=== PATIENT | male | born 1960 | race Caucasian/White ===

== ENCOUNTER → 2017-12-13 | Outpatient (CLI) | payer BC ==
--- NOTE | 2017-12-14 08:07 | US ---
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 Consider MRI correlation.
== END | disposition home or self-care (01) ==
LOC: RADUSWWP 15:45
PROVIDERS: ATTEND Family Medicine
DX: M71.22 Synovial cyst of popliteal space [Baker], left knee (principal); M23.92 Unspecified internal derangement of left knee

== ENCOUNTER → 2019-03-24 | Outpatient (CLI) | payer BC ==
--- NOTE | 2019-03-24 10:48 | MR ---
EXAMINATION TYPE: MR lumbar spine wo con DATE OF EXAM: 03/24/2019 COMPARISON: None HISTORY: lumbar disc prolapse TECHNIQUE: Multiplanar, multisequence images of the lumbar spine were acquired. T12-L1: Small posterior broad-based disc bulge causes mild anterior mass effect on the thecal sac. Mi nimal retrolisthesis grade 1 T12-L1. Mild facet arthropathy. L1-L2: Normal disc appearance without desiccation. No herniation, protrusion or disc bulging. No ca nal stenosis is present. Foramina are patent bilaterally. There is mild facet arthropathy. L2-L3: Posterior broad-based disc bulge causes mild anterior mass effect on the thecal sac. There is some mild facet arthropathy change. No significant central stenosis. Circumferential extension of end plate disc complex results in some foraminal encroachment greater on the left. L3-L4: Posterior broad-based disc bulge causes mild anterior mass effect on the thecal sac. No signif icant central canal stenosis. Circumferential extension of endplate disc complex encroaches somewhat on the foramina. There is some facet arthropathy change. L4-L5: Listhesis is noted, there is facet arthropathy with hypertrophy ligamentum flavum, resulting s tenosis is severe, there is a trefoil appearance of the thecal sac and there is bilateral foraminal e ncroachment. There is a mild posterior broad-based disc bulge. L5-S1: Broad-based posterior disc bulge causes mild anterior mass effect on the thecal sac. There is facet arthropathy present. Circumferential extension of endplate disc complex results in bilateral fe moral encroachment. Lumbar segments are intact. No paraspinal masses are identified. Conus medullaris has a normal appe arance. Lumbar vertebral bodies show preserved height. There is multilevel spondylosis with endplate discogenic marrow signal change. Retrolisthesis grade 1 L5-S1, anterolisthesis grade 1 at L4-5 is not ed. Loss of disc height and signal is present at the intervertebral levels compatible with disc desic cation and degenerative disc disease. There is mild spinal curvature. Probable cortical cyst present in the exophytic location in the upper pole left kidney measuring approximately 1 cm IMPRESSION: Degenerative disc disease with spinal stenosis greatest at L4-5. Multilevel facet arthropathy. Spinal curvature and foraminal encroachment.
== END | disposition home or self-care (01) ==
LOC: RADMRIMAIN 08:41
PROVIDERS: ATTEND Family Medicine
DX: M48.061 Spinal stenosis, lumbar region without neurogenic claudication (principal); M51.36 Other intervertebral disc degeneration, lumbar region; M46.96 Unspecified inflammatory spondylopathy, lumbar region; M43.8X6 Other specified deforming dorsopathies, lumbar region
CPT/HCPCS: 72148

== ENCOUNTER → 2020-09-06 | Outpatient (CLI) | payer BC ==
[~2020-09-06] MED LIST: REGADENOSON 0.4 MG/5 ML SYRINGE IV ONE
--- NOTE | 2020-09-06 10:40 | NM ---
EXAMINATION TYPE: NM stress lexiscan cardiolite DATE OF EXAM: 09/06/2020 COMPARISON: NONE HISTORY: Chest pain TECHNIQUE: After the intravenous administration of 9.59 mCi Tc 99m Sestamibi - Cardiolite resting SP ECT images acquired 45 minutes post injection. The patient received 0.4mg Lexiscan, 25.6 mCi Tc 99m Sestamibi - Stress images obtained [address] injection FINDINGS: Review of stress and rest SPECT images demonstrates no distinct perfusion abnormality. Gated analysi s shows normal wall motion with an estimated left ventricular ejection fraction of 54 %. IMPRESSION: No scintigraphic evidence for reversible ischemia.
--- NOTE | 2020-09-06 11:49 | EST ---
EXERCISE STRESS AGE: 60 SEX: M HT: 68" WT: 149 PROTOCOL: Lexiscan Cardiolite Stress Test HEART RATE REST: 66 BLOOD PRESSURE REST: 155/79 MAXIMUM HEART RATE ACHIEVED: 94 MAXIMUM BLOOD PRESSURE: 159/74 85% MPHR: 134 100% MPHR: 158 CLINICAL INFORMATION: Baseline rhythm is sinus mechanism, rate of 66, normal axis and intervals, minor nonspecific ST-T wave changes, baseline blood pressure 155/79 mmHg. Patient received injection of Lexiscan. Electrocardiograph monitoring revealed rare PVCs. Cardiolite was injected per protocol. CONCLUSION: 1. Nondiagnostic electrocardiograph stress testing. 2. Nuclear images will be reported separately. MMODL / IJN: [id number] /
== END | disposition home or self-care (01) ==
LOC: RADNMMAIN 07:50
PROVIDERS: ATTEND Family Medicine
DX: R07.89 Other chest pain (principal)
CPT/HCPCS: 93017; 78452; A9500; J2785

== ENCOUNTER 2021-11-03 13:15 | Inpatient (IN) | payer BC ==
[2021-11-03] MEDS ORDERED: SODIUM CHLORIDE 0.9% 1,000 ML IV STA (13:51)
--- NOTE | 2021-11-03 14:03 | ED ---
SOB HPI - General Chief Complaint: Shortness of Breath Stated Complaint: Respiratory Distress,COVID+ Time Seen by Provider: 11/03/21 13:31 Source: patient, EMS, RN notes reviewed, old records reviewed Mode of arrival: EMS Limitations: physical limitation - History of Present Illness Initial Comments: 61-year-old male brought in by EMS from a local urgent care complains of shortness of breath fevers T nausea for the past 3-4 days as well as he has satu ration of 70% on room air which increased to 93% on 6 L patient is a poor historian this time he was noted be tachycardic he also denies any known history of COPD. Attempts to find out if he had a Covid Test done today which he states he did are pending at this time MD Complaint: shortness of breath - Related Data Home Medications Medication Instructions Recorded Confirmed Albuterol Inhaler [Ventolin Hfa 2 puff INHALATION RT-Q6H PRN 11/03/21 11/03/21 Inhaler] Ferrous Sulfate [Feosol] 325 mg PO DAILY 11/03/21 11/03/21 Gabapentin 800 mg PO QID 11/03/21 11/03/21 Metoprolol Succinate (ER) [Toprol 50 mg PO DAILY 11/03/21 11/03/21 Xl] Pravastatin Sodium [Pravachol] 40 mg PO HS 11/03/21 11/03/21 Tamsulosin HCl [Flomax] 0.4 mg PO DAILY 11/03/21 11/03/21 oxyCODONE HCL [oxyCODONE HCL (IR)] 30 mg PO Q6H 11/03/21 11/03/21 Allergies Allergy/AdvReac Type Severity Reaction Status Date / Time bupropion [From Zyban] Allergy Unknown Verified 11/03/21 14:31 Review of Systems ROS Statement: Those systems with pertinent positive or pertinent negative responses have been documented in the HPI. ROS Other: All systems not noted in ROS Statement are negative. Limitations: ROS unobtainable due to patients medical condition Past Medical History Past Medical History: Cancer, COPD Additional Past Medical History / Comment(s): Lymphoma-last chemo last month History of Any Multi-Drug Resistant Organisms: None Reported Past Surgical History: Orthopedic Surgery Additional Past Surgical History / Comment(s): Bilateral knee surgery Past Psychological History: No Psychological Hx Reported Smoking Status: Current every day smoker Past Alcohol Use History: None Reported Past Drug Use History: None Reported General Exam - General Exam Comments Initial Comments: Is a well-developed well-nourished lethargic male who is a poor historian Limitations: physical limitation General appearance: alert, lethargic Head exam: Present: atraumatic, normocephalic, normal inspection Eye exam: Present: normal appearance, PERRL, EOMI. Absent: scleral icterus, conjunctival injection, periorbital swelling ENT exam: Present: mucous membranes dry Neck exam: Present: normal inspection. Absent: tenderness, meningismus, lymphadenopathy Respiratory exam: Present: rhonchi, decreased breath sounds. Absent: respiratory distress, wheezes, rales, stridor Cardiovascular Exam: Present: normal rhythm, tachycardia, normal heart sounds. Absent: systolic murmur, diastolic murmur, rubs, gallop, clicks GI/Abdominal exam: Present: soft, normal bowel sounds. Absent: distended, tenderness, guarding, rebound, rigid Extremities exam: Present: normal inspection, full ROM, normal capillary refill. Absent: tenderness, pedal edema, joint swelling, calf tenderness Back exam: Present: normal inspection Neurological exam: Present: alert, oriented X3, CN II-XII intact Psychiatric exam: Present: normal affect, normal mood Skin exam: Present: warm, dry, intact, normal color. Absent: rash Course Vital Signs 11/03/21 11/03/21 11/03/21 13:23 14:20 15:55 Temperature 101.9 F H 99 F Pulse Rate 114 H 112 H 108 H Respiratory 24 24 20 Rate Blood Pressure 137/78 139/81 103/69 O2 Sat by Pulse 98 86 L 91 L Oximetry - Reevaluation(s) Reevaluation #1: 11/03/21 16:55 Reevaluation patient resting comfortably no changes mental status at this time. Medical Decision Making - Medical Decision Making I did discuss the findings patient will be admitted to Dr. Shannon - Lab Data Result diagrams: 11/03/21 13:28 11/03/21 13:28 Lab Results 11/03/21 11/03/21 11/03/21 Range/Units 13:28 13:28 13:28 WBC 44.0 H (3.8-10.6) k/uL RBC 4.05 L (4.30-5.90) m/uL Hgb 12.2 L (13.0-17.5) gm/dL Hct 36.8 L (39.0-53.0) % MCV 90.7 (80.0-100.0) fL MCH 30.0 (25.0-35.0) pg MCHC 33.1 (31.0-37.0) g/dL RDW 16.0 H (11.5-15.5) % Plt Count 106 L (150-450) k/uL MPV 7.7 Neutrophils % (Manual) 21 % Lymphocytes % (Manual) 75 % Monocytes % (Manual) 3 % Eosinophils % (Manual) 1 % Neutrophils # (Manual) 9.24 H (1.3-7.7) k/uL Lymphocytes # (Manual) 33.00 H (1.0-4.8) k/uL Monocytes # (Manual) 1.32 H (0-1.0) k/uL Eosinophils # (Manual) 0.44 (0-0.7) k/uL Nucleated RBCs 0 (0-0) /100 WBC Pathologist Review Polychromasia Present Anisocytosis Slight PT 9.9 (9.0-12.0) sec INR 0.9 (<1.2) APTT 22.4 (22.0-30.0) sec D-Dimer 9.46 H (<0.60) mg/L FEU Sodium 133 L (137-145) mmol/L Potassium 4.4 (3.5-5.1) mmol/L Chloride 98 (98-107) mmol/L Carbon Dioxide 27 (22-30) mmol/L Anion Gap 8 mmol/L BUN 21 H (9-20) mg/dL Creatinine 0.99 (0.66-1.25) mg/dL Est GFR (CKD-EPI)AfAm >90 (>60 ml/min/1.73 sqM) Est GFR (CKD-EPI)NonAf 81 (>60 ml/min/1.73 sqM) Glucose 93 (74-99) mg/dL Plasma Lactic Acid French (0.7-2.0) mmol/L Calcium 8.4 (8.4-10.2) mg/dL Magnesium 1.7 (1.6-2.3) mg/dL Total Bilirubin 0.4 (0.2-1.3) mg/dL AST 60 H (17-59) U/L ALT 27 (4-49) U/L Alkaline Phosphatase 135 H (38-126) U/L Lactate Dehydrogenase (313-618) U/L Troponin I (0.000-0.034) ng/mL C-Reactive Protein (<1.0) mg/dL NT-Pro-B Natriuret Pep pg/mL Total Protein 6.3 (6.3-8.2) g/dL Albumin 3.6 (3.5-5.0) g/dL Influenza Type A (PCR) (Not Detectd) Influenza Type B (PCR) (Not Detectd) RSV (PCR) (Not Detectd) SARS-CoV-2 (PCR) (Not Detectd) 11/03/21 11/03/21 11/03/21 Range/Units 13:28 13:28 13:28 WBC (3.8-10.6) k/uL RBC (4.30-5.90) m/uL Hgb (13.0-17.5) gm/dL Hct (39.0-53.0) % MCV (80.0-100.0) fL MCH (25.0-35.0) pg MCHC (31.0-37.0) g/dL RDW (11.5-15.5) % Plt Count (150-450) k/uL MPV Neutrophils % (Manual) % Lymphocytes % (Manual) % Monocytes % (Manual) % Eosinophils % (Manual) % Neutrophils # (Manual) (1.3-7.7) k/uL Lymphocytes # (Manual) (1.0-4.8) k/uL Monocytes # (Manual) (0-1.0) k/uL Eosinophils # (Manual) (0-0.7) k/uL Nucleated RBCs (0-0) /100 WBC Pathologist Review Polychromasia Anisocytosis PT (9.0-12.0) sec INR (<1.2) APTT (22.0-30.0) sec D-Dimer (<0.60) mg/L FEU Sodium (137-145) mmol/L Potassium (3.5-5.1) mmol/L Chloride (98-107) mmol/L Carbon Dioxide (22-30) mmol/L Anion Gap mmol/L BUN (9-20) mg/dL Creatinine (0.66-1.25) mg/dL Est GFR (CKD-EPI)AfAm (>60 ml/min/1.73 sqM) Est GFR (CKD-EPI)NonAf (>60 ml/min/1.73 sqM) Glucose (74-99) mg/dL Plasma Lactic Acid French 0.9 (0.7-2.0) mmol/L Calcium (8.4-10.2) mg/dL Magnesium (1.6-2.3) mg/dL Total Bilirubin (0.2-1.3) mg/dL AST (17-59) U/L ALT (4-49) U/L Alkaline Phosphatase (38-126) U/L Lactate Dehydrogenase (313-618) U/L Troponin I 0.016 (0.000-0.034) ng/mL C-Reactive Protein (<1.0) mg/dL NT-Pro-B Natriuret Pep 510 pg/mL Total Protein (6.3-8.2) g/dL Albumin (3.5-5.0) g/dL Influenza Type A (PCR) (Not Detectd) Influenza Type B (PCR) (Not Detectd) RSV (PCR) (Not Detectd) SARS-CoV-2 (PCR) (Not Detectd) 11/03/21 11/03/21 11/03/21 Range/Units 14:04 14:05 15:00 WBC (3.8-10.6) k/uL RBC (4.30-5.90) m/uL Hgb (13.0-17.5) gm/dL Hct (39.0-53.0) % MCV (80.0-100.0) fL MCH (25.0-35.0) pg MCHC (31.0-37.0) g/dL RDW (11.5-15.5) % Plt Count (150-450) k/uL MPV Neutrophils % (Manual) % Lymphocytes % (Manual) % Monocytes % (Manual) % Eosinophils % (Manual) % Neutrophils # (Manual) (1.3-7.7) k/uL Lymphocytes # (Manual) (1.0-4.8) k/uL Monocytes # (Manual) (0-1.0) k/uL Eosinophils # (Manual) (0-0.7) k/uL Nucleated RBCs (0-0) /100 WBC Pathologist Review See comment A Polychromasia Anisocytosis PT (9.0-12.0) sec INR (<1.2) APTT (22.0-30.0) sec D-Dimer (<0.60) mg/L FEU Sodium (137-145) mmol/L Potassium (3.5-5.1) mmol/L Chloride (98-107) mmol/L Carbon Dioxide (22-30) mmol/L Anion Gap mmol/L BUN (9-20) mg/dL Creatinine (0.66-1.25) mg/dL Est GFR (CKD-EPI)AfAm (>60 ml/min/1.73 sqM) Est GFR (CKD-EPI)NonAf (>60 ml/min/1.73 sqM) Glucose (74-99) mg/dL Plasma Lactic Acid French (0.7-2.0) mmol/L Calcium (8.4-10.2) mg/dL Magnesium (1.6-2.3) mg/dL Total Bilirubin (0.2-1.3) mg/dL AST (17-59) U/L ALT (4-49) U/L Alkaline Phosphatase (38-126) U/L Lactate Dehydrogenase 841 H (313-618) U/L Troponin I (0.000-0.034) ng/mL C-Reactive Protein 13.7 H (<1.0) mg/dL NT-Pro-B Natriuret Pep pg/mL Total Protein (6.3-8.2) g/dL Albumin (3.5-5.0) g/dL Influenza Type A (PCR) Not Detected (Not Detectd) Influenza Type B (PCR) Not Detected (Not Detectd) RSV (PCR) Not Detected (Not Detectd) SARS-CoV-2 (PCR) Detected A (Not Detectd) - EKG Data -: EKG Interpreted by Me EKG shows normal: sinus rhythm EKG Comments: Sinus tachycardia rate 1:15. Interval 124 QRS duration 94 QT since QTC 304/420 - Radiology Data Radiology results: report reviewed (Imaging reviewed evidence of left pleural effusion lymphadenopathy please see the complete report no definitive evidence of PE.), image reviewed Critical Care Time Critical Care Time: Yes Total Critical Care Time: 39 Critical Care Time: Critical care time including initial presentation with history physical labs x- rays discussed with paramedics upon arrival reevaluation patient on multiple occasions discussion with the pathologist as well as admitting physician a dmission orders documentation the above Disposition Clinical Impression: COVID-19, Lymphoma, Febrile illness, acute, Pleural effusion, Hypoxemia, Dehydration, Leukocytosis Disposition: ADMITTED IP TO THIS [facility] Condition: Fair Referrals: Odin Srivastava MD [Primary Care Provider] - 1-2 days
[2021-11-03] MEDS ORDERED: ACETAMINOPHEN TAB 500 MG TAB PO STA (14:06)
[2021-11-03 14:09] LABS: Anisocytosis Slight; HCT 36.8 % (39.0-53.0); HGB 12.2 gm/dL (13.0-17.5); MCHC 33.1 g/dL (31.0-37.0); MCV 90.7 fL (80.0-100.0); Mean Platelet Volume 7.7; Platelet Count 106 k/uL (150-450); RBC 4.05 m/uL (4.30-5.90)
[2021-11-03 14:26] LABS: ALT 27 U/L (4-49); AST 60 U/L (17-59); African American GFR (CKD) >90 (>60 ml/min/1.73 sqM); Albumin 3.6 g/dL (3.5-5.0); Alkaline Phosphatase 135 U/L (38-126); Anion Gap 8 mmol/L; Blood Urea Nitrogen 21 mg/dL (9-20); Calcium 8.4 mg/dL (8.4-10.2); Carbon Dioxide 27 mmol/L (22-30); Chloride 98 mmol/L (98-107); Glucose 93 mg/dL (74-99); Magnesium 1.7 mg/dL (1.6-2.3); Non-African American GFR(CKD) 81 (>60 ml/min/1.73 sqM); Potassium 4.4 mmol/L (3.5-5.1); Sodium 133 mmol/L (137-145); Total Bilirubin 0.4 mg/dL (0.2-1.3); Total Protein 6.3 g/dL (6.3-8.2)
[2021-11-03 14:27] LABS: INR 0.9 (<1.2); Partial Thromboplastin Time 22.4 sec (22.0-30.0); Prothrombin Time 9.9 sec (9.0-12.0)
--- NOTE | 2021-11-03 14:27 | XR ---
EXAMINATION TYPE: XR chest 2V DATE OF EXAM: 11/03/2021 COMPARISON: None HISTORY: 61 year-old male shortness of breath, difficulty breathing TECHNIQUE: AP and lateral views FINDINGS: Heart mildly enlarged. Diffuse interstitial density. Patchy bilateral airspace opacities. There appea rs to be a small left pleural effusion. IMPRESSION: 1. Cardiomegaly with interstitial opacities and patchy airspace disease along with small left pleural effusion. Consider CHF with interstitial pulmonary edema. 2. Underlying COVID pneumonia should be excluded clinically.
[2021-11-03 14:58] LABS: Eosinophils # (M) 0.44 k/uL (0-0.7); Monocytes # (M) 1.32 k/uL (0-1.0); Neutrophils # (M) 9.24 k/uL (1.3-7.7); Neutrophils % (M) 21 %; Nucleated Red Blood Cells 0 /100 WBC (0-0); Total Cells Counted 100
[2021-11-03 14:59] LABS: Polychromasia Present
--- NOTE | 2021-11-03 15:27 | CT ---
EXAMINATION TYPE: CT angio chest DATE OF EXAM: 11/03/2021 COMPARISON: Radiograph same day HISTORY: 61-year-old male covid, weakness TECHNIQUE: Contiguous axial scanning of the chest performed with IV Contrast, patient injected with 1 00 mL of Isovue 370. Coronal/sagittal MIP reconstructions performed. CT DLP: 510.2 mGycm Automated exposure control for dose reduction was used. FINDINGS: Heart normal size without pericardial effusion. No flattening of the interventricular septum. Small a mount of refluxed contrast into the hepatic veins. LAD coronary artery calcifications are present. Atherosclerotic arch calcifications of the aorta with conventional arch vessel branching anatomy. Generalized thoracic lymphadenopathy. Axillary lymph nodes measure up to 1.6 cm short axis. Internal mammary chain lymph nodes measure up to 2.5 cm on the left. Prevascular space lymph nodes measure 4.2 x 1.7 cm. Right paratracheal lymph nodes measure up to 2.1 cm. AP window lymph nodes measure up to 2.4 cm. Right hilar lymph nodes measure 3.0 x 1.6 cm. Left hilar lymph nodes measure up to 3.9 x 1.2 cm. Lower right paraesophageal lymph nodes measure up to 2.1 x 2.0 cm. Pericardiac mimi mass measures up to 6.6 x 2.1 cm. Retrocrural lymphadenopathy measures up to 1.9 cm. Soft tissue encases the retroperitoneal vasculature in the upper abdomen. Portacaval lymphadenopathy measuring up to 5.4 cm. Pura hepatic lymphadenopathy measuring up to at least 4.4 cm. Severe splenomegaly at least 18.4 cm. Numerous calcifications within the pancreas compatible with chronic pancreatitis. Nonspecific 1.4 cm hypodensity right liver lobe, probable cyst. There is a moderate left pleural effusion with adjacent atelectasis. Moderate emphysema. Diffuse septal lines. Some scattered bronchiolectasis. While there is satisfactory opacification the pulmonary artery system, there is excessive motion renetta fact limiting assessment for pulmonary embolus. No large central or definite lobar branch embolus. Ma ny of the segmental and more distal arterial branches are nondiagnostic and emboli in these locations cannot be excluded on the basis of this exam. Bones: Moderate degenerative disc disease throughout the thoracic spine. Accentuated mid to lower tho racic kyphosis. Breathing motion artifacts. IMPRESSION: 1. THE PATIENT IS BREATHING DURING THE SCAN. NO DEFINITE CENTRAL OR LOBAR BRANCH EMBOLUS. MANY OF THE SEGMENTAL AND MORE DISTAL ARTERIAL BRANCHES ARE NONDIAGNOSTIC AND EMBOLI IN THESE LOCATIONS CANNOT B E EXCLUDED ON THE BASIS OF THIS EXAM. 2. DIFFUSE THORACIC AND UPPER ABDOMINAL LYMPHADENOPATHY WITH MIMI MASSES MEASURING UP TO 6.6 CM IN T HE CHEST AND COMPLETELY ENCASING RETROPERITONEAL VASCULATURE IN THE UPPER ABDOMEN. ALSO, SEVERE SPLEN OMEGALY UP TO AT LEAST 18.4 CM. FURTHER WORKUP FOR LYMPHOMA OR LYMPHOPROLIFERATIVE DISORDER RECOMMEND ED. 3. COPD. GIVEN A MODERATE LEFT PLEURAL EFFUSION AND DIFFUSE SEPTAL LINES, CONSIDER SUPERIMPOSED PULMO NARY VASCULAR CONGESTION.
--- NOTE | 2021-11-03 15:29 | CT ---
EXAMINATION TYPE: CT brain wo con DATE OF EXAM: 11/03/2021 COMPARISON: None HISTORY: 61 year-old male altered mental status, confusion, weakness TECHNIQUE: Examination was done in axial plane without intravenous contrast. Coronal and sagittal r econstructions performed. CT DLP: 1130 mGycm Automated exposure control for dose reduction was used. FINDINGS: There is no evidence of acute intracranial hemorrhage, acute ischemic changes, mass, mass-effect, or extra-axial fluid collection. There is no effacement of cerebral sulci or basal subarachnoid cister ns. There is no hydrocephalus. There is no midline shift. Felder-white matter distinction is preserv ed. Leftward nasal septal deviation. Moderate mucosal thickening ethmoid air cells. Orbits and globes are intact. Mastoid air cells appear somewhat hypoplastic. IMPRESSION: No acute intracranial abnormality seen.
[2021-11-03 15:35] LABS: C Reactive Protein 13.7 mg/dL (<1.0)
[2021-11-03] MEDS ORDERED: NALOXONE 0.4 MG/ML 1 ML VIAL IV PRN (16:59)
[2021-11-03 17:37] LABS: ABG Base Excess 1.8 mmol/L; ABG HCO3 27 mmol/L (21-25); ABG Oxygen Saturation 93.7 % (94-97); ABG PCO2 46 mmHg (35-45); ABG PH 7.38 (7.35-7.45); ABG PO2 65 mmHg (83-108); ABG TCO2 28 mmol/L (19-24); Allen Test Performed? Yes
[2021-11-03] MEDS ORDERED: GABAPENTIN 400 MG CAP PO SCH (18:00)
[2021-11-03] MEDS ORDERED: ONDANSETRON 4 MG/2 ML VIAL IVP PRN (18:53)
[2021-11-03] MEDS ORDERED: MELATONIN 3 MG TABLET PO PRN (18:53)
--- NOTE | 2021-11-03 19:01 | P.HPIM ---
History of Present Illness H&P Date: 11/03/21 Chief Complaint: Confusion Patient is a 61-year-old male for history of lymphoma with last chemo last month, COPD, and tobacco abuse who presented to the ER with complaints of shortness of breath. He had been to urgent care earlier and was found to have COVID-19. Laboratory analysis in the ER was remarkable for white blood cell count of 44 with smudge cells present, sodium 133, LDH 841, CRP 13. Chest x-ray was consistent with CHF versus COVID-19 pneumonia. Patient underwent chest CTA which demonstrated no evidence of central or lobar pulmonary embolism, diffuse thoracic and upper abdominal lymphadenopathy and severe splenomegaly as well as COPD and a moderate left-sided pleural effusion. CT head showed no acute intracranial abnormality. His fundi be febrile on admission with a temperature of 101.9 he was tachycardic with a pulse of 114 and he was satting 86% on 6 L nasal cannula. ABG demonstrated a preserved pH with a CO2 of 46. In the ER he was given a dose of Tylenol and started on IV fluids. He was admitted for further monitoring. Patient seen and examined at bedside. He states that he is here because his made him come. He reports that he always has a cough and SOB he thinks it might be worse.He reports that he started havgin a fever recently he did not think he had COVID until he went to urgent care today. He denies any nausea, vomiting, diarrhea, decreased appetite. He reports that he has been sleeping less than normal. Called : She noticed him acting odd on wednesday. He had a fever, but he wouldn't go to the emergency department. Tylenol help with the fever. He was not acting right per , more confused for 2 days. Gebepentin was just refilled 4-5 days ago, and she thinks that more are missing than should be. She controlls his OxyIr and will now controll his gabapentin. He is on these due to chronic back pain .Vaccinated with Moderna 2nd dose February 20. Last saw Dr. Sigala on 10/28 WBC 24.9 Currently on maintence immunotherapy. Had 6 months of chemo prior to that. Dr. Sigala was worried Lymphoma was back due to increased WBC. Pertinent positives and negatives as discussed in HPI, a complete review of sys tems was performed and all other systems are negative. General: Ill appearing, moderate distress appears at stated age Derm: warm, dry Head: atraumatic, normocephalic, symmetric Eyes: EOMI, no lid lag, anicteric sclera, pupils equal round reactive to light ENT: Nose and ears atraumatic, no thrush, no pharyngeal erythema Neck: No thyromegaly, no cervical lymphadenopathy, trachea midline, supple Mouth: no lip lesion, mucus membranes moist Cardiovascular: S1S2 reg, no murmur, positive posterior tibial pulse bilateral, no edema, capillary refill less than 2 seconds Lungs: Coarse breath sounds bilaterally with no active wheezing, 3 word conversational dyspnea, no accessory muscle use Abdominal: soft, nontender to palpation, no guarding, no appreciable organomegaly, normal bowel sounds Ext: no gross muscle atrophy, muscle strength muscle strength 5 out of 5 in all 4 extremities, no contractures Neuro: CN II-XI grossly intact, light touch intact all 4 extremities, finger to nose within normal limits, Psych: Alert, oriented, flat affect, seems disinterested in medical exam Assessment/Plan: COVID-19 pneumonitis Acute hypoxic respiratory failure COPD without acute exacerbation Toxic metabolic encephalopathy -Start dexamethasone -Consult pulmonary: Patient likely is a good candidate for REM - Start zinc, vitamin C, and vitamin D -Follow Covid inflammatory markers, though these will likely be unreliable secondary to his known lymphoma -Pulmonary hygiene -Bronchodilators as needed -Hold gabapentin thinks he may have taken too many Chronic Back pain -Hold gabapentin his thinks he may have taken too many -Resume home Oxyconitn for pain Lymphoma with white blood cell count 44 and thrombocytopenia -We'll discuss with Dr. Sigala in a.m. -Follow CBC Hyponatremia -Likely multifactorial with suspected due to insensible water losses -IV fluids -Repeat in a.m. Hypertension, controlled -Resume home metoprolol -Follow blood pressures Dyslipidemia -Statin Tobacco absue - cessation - nicotine replacement The patient is admitted with an anticipated greater than 2 midnight stay for evaluation of COVID-19 Surrogate decision-maker: CODE STATUS:Full per patient DVT prophylaxis: Lovenox Discussed with: Patient, nursing Anticipated discharge date: undetermined Anticipated discharge place: undetermined A total of 65 minutes was spent on the care of this complex patient more than 50% of the time was spent in counseling and care coordination. Past Medical History Past Medical History: Cancer, COPD, Hyperlipidemia, Hypertension Additional Past Medical History / Comment(s): Lymphoma-last chemo last month, BPH, Splenomegally History of Any Multi-Drug Resistant Organisms: None Reported Past Surgical History: Orthopedic Surgery Additional Past Surgical History / Comment(s): Bilateral shoulder surgery, Back surgery, Left knee surgery, Tumor removed from right kidney Aug 2021. Past Psychological History: No Psychological Hx Reported Smoking Status: Current every day smoker Past Alcohol Use History: None Reported Past Drug Use History: None Reported Additional History: No assistive devices - Past Family History Father Additional Family Medical History / Comment(s): lung cancer Mother Family Medical History: Dementia Medications and Allergies Home Medications Medication Instructions Recorded Confirmed Type Albuterol Inhaler [Ventolin Hfa 2 puff INHALATION RT-Q6H PRN 11/03/21 11/03/21 History Inhaler] Ferrous Sulfate [Feosol] 325 mg PO DAILY 11/03/21 11/03/21 History Gabapentin 800 mg PO QID 11/03/21 11/03/21 History Metoprolol Succinate (ER) [Toprol 50 mg PO DAILY 11/03/21 11/03/21 History Xl] Pravastatin Sodium [Pravachol] 40 mg PO HS 11/03/21 11/03/21 History Tamsulosin HCl [Flomax] 0.4 mg PO DAILY 11/03/21 11/03/21 History oxyCODONE HCL [oxyCODONE HCL (IR)] 30 mg PO Q6H 11/03/21 11/03/21 History Allergies Allergy/AdvReac Type Severity Reaction Status Date / Time bupropion [From [facility]] Allergy Unknown Verified 11/03/21 14:31 doxycycline Allergy Rash/Hives Verified 11/03/21 18:33 Physical Exam Osteopathic Statement: *. No significant issues noted on an osteopathic structural exam other than those noted in the History and Physical/Consult. Vitals: Vital Signs Temp Pulse Resp BP Pulse Ox 11/03/21 15:55 99 F 108 H 20 103/69 91 L 11/03/21 14:20 112 H 24 139/81 86 L 11/03/21 13:23 101.9 F H 114 H 24 137/78 98 Intake and Output 11/03/21 11/03/21 11/03/21 06:59 14:59 22:59 Other: Weight 79.379 kg Results CBC & Chem 7: 11/03/21 13:28 11/03/21 13:28 Labs: Abnormal Lab Results - Last 24 Hours (Table) 11/03/21 11/03/21 11/03/21 Range/Units 13:28 13:28 13:28 WBC 44.0 H (3.8-10.6) k/uL RBC 4.05 L (4.30-5.90) m/uL Hgb 12.2 L (13.0-17.5) gm/dL Hct 36.8 L (39.0-53.0) % RDW 16.0 H (11.5-15.5) % Plt Count 106 L (150-450) k/uL Neutrophils # (Manual) 9.24 H (1.3-7.7) k/uL Lymphocytes # (Manual) 33.00 H (1.0-4.8) k/uL Monocytes # (Manual) 1.32 H (0-1.0) k/uL Pathologist Review D-Dimer 9.46 H (<0.60) mg/L FEU ABG pCO2 (35-45) mmHg ABG pO2 (83-108) mmHg ABG HCO3 (21-25) mmol/L ABG Total CO2 (19-24) mmol/L ABG O2 Saturation (94-97) % Sodium 133 L (137-145) mmol/L BUN 21 H (9-20) mg/dL AST 60 H (17-59) U/L Alkaline Phosphatase 135 H (38-126) U/L Lactate Dehydrogenase (313-618) U/L C-Reactive Protein (<1.0) mg/dL SARS-CoV-2 (PCR) (Not Detectd) 11/03/21 11/03/21 11/03/21 Range/Units 14:04 14:05 15:00 WBC (3.8-10.6) k/uL RBC (4.30-5.90) m/uL Hgb (13.0-17.5) gm/dL Hct (39.0-53.0) % RDW (11.5-15.5) % Plt Count (150-450) k/uL Neutrophils # (Manual) (1.3-7.7) k/uL Lymphocytes # (Manual) (1.0-4.8) k/uL Monocytes # (Manual) (0-1.0) k/uL Pathologist Review See comment A D-Dimer (<0.60) mg/L FEU ABG pCO2 (35-45) mmHg ABG pO2 (83-108) mmHg ABG HCO3 (21-25) mmol/L ABG Total CO2 (19-24) mmol/L ABG O2 Saturation (94-97) % Sodium (137-145) mmol/L BUN (9-20) mg/dL AST (17-59) U/L Alkaline Phosphatase (38-126) U/L Lactate Dehydrogenase 841 H (313-618) U/L C-Reactive Protein 13.7 H (<1.0) mg/dL SARS-CoV-2 (PCR) Detected A (Not Detectd) 11/03/21 Range/Units 17:32 WBC (3.8-10.6) k/uL RBC (4.30-5.90) m/uL Hgb (13.0-17.5) gm/dL Hct (39.0-53.0) % RDW (11.5-15.5) % Plt Count (150-450) k/uL Neutrophils # (Manual) (1.3-7.7) k/uL Lymphocytes # (Manual) (1.0-4.8) k/uL Monocytes # (Manual) (0-1.0) k/uL Pathologist Review D-Dimer (<0.60) mg/L FEU ABG pCO2 46 H (35-45) mmHg ABG pO2 65 L (83-108) mmHg ABG HCO3 27 H (21-25) mmol/L ABG Total CO2 28 H (19-24) mmol/L ABG O2 Saturation 93.7 L (94-97) % Sodium (137-145) mmol/L BUN (9-20) mg/dL AST (17-59) U/L Alkaline Phosphatase (38-126) U/L Lactate Dehydrogenase (313-618) U/L C-Reactive Protein (<1.0) mg/dL SARS-CoV-2 (PCR) (Not Detectd)
[2021-11-03] MEDS: DEXAMETHASONE SOD PHOSPHATE 10 MG/ML 1 ML VIAL IVP SCH (19:50)
[2021-11-03] MEDS: SODIUM CHLORIDE 0.9% 1,000 ML IV SCH (19:51)
[2021-11-03] MEDS: ACETAMINOPHEN TAB 325 MG TAB PO PRN (19:52)
[2021-11-03] MEDS: ALBUTEROL HFA INHALER INHALATION PRN (19:58)
[2021-11-03] MEDS: PRAVASTATIN SODIUM 40 MG TAB PO SCH (20:08)
[2021-11-04] MEDS: SODIUM CHLORIDE 0.9% 1,000 ML IV SCH ×2 (05:19→13:15)
[2021-11-04] MEDS: ACETAMINOPHEN TAB 325 MG TAB PO PRN ×2 (05:22→20:36)
[2021-11-04 06:04] LABS: Basophils # (A) 0.3 k/uL (0-0.2); Basophils % (A) 1 %; Eosinophils % (A) 0 %; HCT 37.4 % (39.0-53.0); HGB 12.1 gm/dL (13.0-17.5); Hypochromasia Slight; Lymphocytes % (A) 75 %; MCH 29.3 pg (25.0-35.0); MCHC 32.3 g/dL (31.0-37.0); MCV 90.6 fL (80.0-100.0); Mean Platelet Volume 7.4; Monocytes # (A) 0.4 k/uL (0-1.0); Monocytes % (A) 1 %; Neutrophils # (A) 9.4 k/uL (1.3-7.7); Neutrophils % (A) 20 %; Platelet Count 102 k/uL (150-450); RBC 4.13 m/uL (4.30-5.90); RDW 15.5 % (11.5-15.5); WBC 46.9 k/uL (3.8-10.6)
[2021-11-04 06:13] LABS: Lymphocytes # (A) 35.2 k/uL (1.0-4.8)
[2021-11-04 06:25] LABS: ALT 28 U/L (4-49); AST 62 U/L (17-59); African American GFR (CKD) >90 (>60 ml/min/1.73 sqM); Albumin 3.6 g/dL (3.5-5.0); Alkaline Phosphatase 161 U/L (38-126); Anion Gap 6 mmol/L; Blood Urea Nitrogen 17 mg/dL (9-20); Calcium 8.4 mg/dL (8.4-10.2); Carbon Dioxide 26 mmol/L (22-30); Chloride 100 mmol/L (98-107); Glucose 119 mg/dL (74-99); LDH 847 U/L (313-618); Magnesium 1.9 mg/dL (1.6-2.3); Non-African American GFR(CKD) >90 (>60 ml/min/1.73 sqM); Phosphorus 3.5 mg/dL (2.5-4.5); Potassium 4.9 mmol/L (3.5-5.1); Sodium 132 mmol/L (137-145); Total Bilirubin 0.5 mg/dL (0.2-1.3); Total Protein 6.2 g/dL (6.3-8.2)
[2021-11-04 06:39] LABS: INR 0.9 (<1.2); Prothrombin Time 9.9 sec (9.0-12.0)
[2021-11-04] MEDS: DEXAMETHASONE SOD PHOSPHATE 10 MG/ML 1 ML VIAL IVP SCH (10:02)
[2021-11-04] MEDS: TAMSULOSIN 0.4 MG CAP.ER.24H PO SCH (10:03)
[2021-11-04] MEDS: ENOXAPARIN 40 MG/0.4 ML SYRINGE SQ SCH (10:03)
[2021-11-04] MEDS: NICOTINE 14MG/24HR PATCH TRANSDERM SCH (10:03)
[2021-11-04] MEDS: FERROUS SULFATE 325 MG TAB PO SCH (10:03)
[2021-11-04] MEDS: METOPROLOL SUCCINATE (ER) 50 MG TAB.ER.24H PO SCH (10:03)
[2021-11-04 11:25] VITALS: BMI 28.2
--- NOTE | 2021-11-04 11:38 | P.CNPUL ---
History of Present Illness Consult date: 11/04/21 Requesting physician: Delmy Alarcon Reason for consult: dyspnea, cough, hypoxemia, pneumonia, abnormal CXR/CT Chief complaint: Shortness of breath. History of present illness: Pulmonary consult dated 11/04/2021. 61-year-old male, seen in consultation. [facility]. He was brought in by EMS for shortness of breath. In addition, he had fever, chills, and dry cough. He's been sick for 3-4 days. Initially, the patient's saturation on room air was only 70%. Currently, the patient is on 10 L high flow O2. The patient's getting saline at 75 mL an hour. He apparently is only been sick for about or days. His primary care physician is Dr. Srivastava. He did receive the Moderna vaccine. The patient has a history of COPD from ongoing tobacco use, and also has a history of lymphoma. His last chemotherapy was apparently last month. He appears to also have hypertension, and hyperlipidemia. White count 46.9, hemoglobin 12.1, hematocrit 37.4, and platelet count 102,000. D-dimer is 7.76. Blood gases show pO2 of 65, pCO2 of 46, and a pH is 7.38. Sodium 132, potassium 4.9, chlorides 100, CO2 26, anion gap 6, BUN 17, creatinine 0.85. LDH is 847. Pro-calcitonin level was 0.21. Chest x-ray shows patchy bilateral infiltrates. The CT angiogram was negative for pulmonary embolism, but did show diffuse thoracic adenopathy consistent with the patient's known diagnosis of lymphoma. There may also be a component of fluid overload/interstitial edema. Review of Systems REVIEW OF SYSTEMS: CONSTITUTIONAL: Fever, chills, weakness. NEUROLOGIC: [ Negative.] HEENT: [ Negative.] CARDIAC: [Negative.] PULMONARY: Shortness of breath, cough. GI: [Negative.] : [Negative.] RHEUMATOLOGIC: [ Negative.] IMMUNOLOGIC: [ Negative.] ENDOCRINE: [Negative. ] DERMATOLOGIC: [Negative.] Past Medical History Past Medical History: Cancer, COPD, Hyperlipidemia, Hypertension Additional Past Medical History / Comment(s): Lymphoma-last chemo last month, BPH, Splenomegally History of Any Multi-Drug Resistant Organisms: None Reported Past Surgical History: Orthopedic Surgery Additional Past Surgical History / Comment(s): Bilateral shoulder surgery, Back surgery, Left knee surgery, Tumor removed from right kidney Aug 2021. Past Psychological History: No Psychological Hx Reported Smoking Status: Current every day smoker Past Alcohol Use History: None Reported Past Drug Use History: None Reported - Past Family History Father Additional Family Medical History / Comment(s): lung cancer Mother Family Medical History: Dementia Medications and Allergies Home Medications Medication Instructions Recorded Confirmed Type Albuterol Inhaler [Ventolin Hfa 2 puff INHALATION RT-Q6H PRN 11/03/21 11/03/21 History Inhaler] Ferrous Sulfate [Feosol] 325 mg PO DAILY 11/03/21 11/03/21 History Gabapentin 800 mg PO QID 11/03/21 11/03/21 History Metoprolol Succinate (ER) [Toprol 50 mg PO DAILY 11/03/21 11/03/21 History Xl] Pravastatin Sodium [Pravachol] 40 mg PO HS 11/03/21 11/03/21 History Tamsulosin HCl [Flomax] 0.4 mg PO DAILY 11/03/21 11/03/21 History oxyCODONE HCL [oxyCODONE HCL (IR)] 30 mg PO Q6H 11/03/21 11/03/21 History Allergies Allergy/AdvReac Type Severity Reaction Status Date / Time bupropion [From [facility]] Allergy Unknown Verified 11/03/21 14:31 doxycycline Allergy Rash/Hives Verified 11/03/21 18:33 Physical Exam Osteopathic Statement: *. No significant issues noted on an osteopathic structural exam other than those noted in the History and Physical/Consult. Vitals: Vital Signs Temp Pulse Pulse Resp BP BP Pulse Ox 11/04/21 04:00 101.4 F H 118 H 20 142/81 91 L 11/04/21 02:00 99.9 F H 113 H 22 155/85 92 L 11/04/21 01:29 98.6 F 108 H 22 134/81 92 L 11/04/21 00:25 99.1 F 105 H 22 130/78 93 L 11/03/21 21:17 101 F H 116 H 21 145/84 92 L 11/03/21 19:31 100.2 F H 109 H 26 H 145/84 90 L 11/03/21 15:55 99 F 108 H 20 103/69 91 L 11/03/21 14:20 112 H 24 139/81 86 L 11/03/21 13:23 101.9 F H 114 H 24 137/78 98 Intake and Output 11/03/21 11/04/21 11/04/21 22:59 06:59 14:59 Intake Total 615 Output Total 1000 Balance -385 Intake: Intake, IV Titration 375 Amount Sodium Chloride 0.9% 1, 375 000 ml @ 75 mls/hr IV . [id number] [facility] Rx#:[id number] Oral 240 Output: Urine 1000 Other: Voiding Method Urinal Weight 79.379 kg 79.379 kg No evidence of conversational dyspnea or use of accessory muscles. Patient currently on 10 L high flow O2. Patient can speak in full sentences. HEENT examination is grossly unremarkable. Neck supple. Full range of motion. No adenopathy thyromegaly or neck vein distention. Cardiovascular examination reveals regular rhythm rate. S1-S2 normal. No S3 or S4. No discernible murmur noted. Heart sounds distant. Heart rate 114 bpm. Lungs reveal coarse bilateral rhonchi, and bibasilar crackles. No wheezes. Br eath sounds equal bilaterally. Saturations are 93% on 10 L. Abdomen soft bowel sounds are heard. No masses or tenderness. Extremities are intact. No cyanosis clubbing or edema. Skin is without rash or lesion. Neurologic examination is brief but nonfocal. Results - Laboratory Findings CBC and BMP: 11/04/21 05:31 11/04/21 05:31 ABG ABG pH 7.38 (7.35-7.45) 11/03/21 17:32 ABG pCO2 46 mmHg (35-45) H 11/03/21 17:32 ABG pO2 65 mmHg (83-108) L 11/03/21 17:32 ABG O2 Saturation 93.7 % (94-97) L 11/03/21 17:32 PT/INR, D-dimer PT 9.9 sec (9.0-12.0) 11/04/21 05:31 INR 0.9 (<1.2) 11/04/21 05:31 D-Dimer 7.76 mg/L FEU (<0.60) H 11/04/21 05:31 Abnormal lab findings: Abnormal Labs 11/03/21 11/03/21 11/03/21 13:28 13:28 13:28 WBC 44.0 H RBC 4.05 L Hgb 12.2 L Hct 36.8 L RDW 16.0 H Plt Count 106 L Neutrophils # Neutrophils # (Manual) 9.24 H Lymphocytes # Lymphocytes # (Manual) 33.00 H Monocytes # (Manual) 1.32 H Basophils # Pathologist Review D-Dimer 9.46 H ABG pCO2 ABG pO2 ABG HCO3 ABG Total CO2 ABG O2 Saturation Sodium 133 L BUN 21 H Glucose AST 60 H Alkaline Phosphatase 135 H Lactate Dehydrogenase C-Reactive Protein Total Protein Procalcitonin SARS-CoV-2 (PCR) 11/03/21 11/03/21 11/03/21 14:04 14:04 14:05 WBC RBC Hgb Hct RDW Plt Count Neutrophils # Neutrophils # (Manual) Lymphocytes # Lymphocytes # (Manual) Monocytes # (Manual) Basophils # Pathologist Review D-Dimer ABG pCO2 ABG pO2 ABG HCO3 ABG Total CO2 ABG O2 Saturation Sodium BUN Glucose AST Alkaline Phosphatase Lactate Dehydrogenase 841 H C-Reactive Protein 13.7 H Total Protein Procalcitonin 0.21 H SARS-CoV-2 (PCR) Detected A 11/03/21 11/03/21 11/04/21 15:00 17:32 05:31 WBC 46.9 H RBC 4.13 L Hgb 12.1 L Hct 37.4 L RDW Plt Count 102 L Neutrophils # 9.4 H Neutrophils # (Manual) Lymphocytes # 35.2 H Lymphocytes # (Manual) Monocytes # (Manual) Basophils # 0.3 H Pathologist Review See comment A D-Dimer ABG pCO2 46 H ABG pO2 65 L ABG HCO3 27 H ABG Total CO2 28 H ABG O2 Saturation 93.7 L Sodium BUN Glucose AST Alkaline Phosphatase Lactate Dehydrogenase C-Reactive Protein Total Protein Procalcitonin SARS-CoV-2 (PCR) 11/04/21 11/04/21 05:31 05:31 WBC RBC Hgb Hct RDW Plt Count Neutrophils # Neutrophils # (Manual) Lymphocytes # Lymphocytes # (Manual) Monocytes # (Manual) Basophils # Pathologist Review D-Dimer 7.76 H ABG pCO2 ABG pO2 ABG HCO3 ABG Total CO2 ABG O2 Saturation Sodium 132 L BUN Glucose 119 H AST 62 H Alkaline Phosphatase 161 H Lactate Dehydrogenase 847 H C-Reactive Protein Total Protein 6.2 L Procalcitonin SARS-CoV-2 (PCR) - Diagnostic Findings Chest x-ray: image reviewed CT scan - chest: image reviewed Assessment and Plan Assessment: Acute hypoxemic respiratory failure, which might be multifactorial, in part related to coronavirus associated pneumonia, fluid overload, and possible COPD exacerbation. In addition, there may be a component of bacterial infection. History of hypertension. History of hyperlipidemia. History of ongoing tobacco use, with suspected COPD. History of lymphoma. Plan: Plan dated 11/04/2021. Currently, the patient's receiving Decadron, and Lovenox. The patient should also be placed on vitamin C, vitamin D3, and zinc. In addition, will enhance his treatment for COPD. The patient may also benefit from a dose of diuretics. Additional recommendations and suggestions are forthcoming. We will continue to follow make recommendations where appropriate. Prognosis is guarded. Time with Patient: Greater than 30
[2021-11-04 11:54] LABS: Glucose,Whole Blood 101 mg/dL (75-99)
[2021-11-04 12:14] LABS: Appearance,Urine Clear (Clear); Bilirubin,Urine Negative (Negative); Blood,Urine Trace (Negative); Color,Urine Yellow; Glucose,Urine (UA) Negative (Negative); Ketones,Urine 1+ (Negative); Leukocyte Esterase,Urine Negative (Negative); Nitrite,Urine Negative (Negative); PH, Urine 5.5 (5.0-8.0); Protein,Urine 1+ (Negative); RBC,Urine <1 /hpf (0-5); Specific Gravity,Urine 1.015 (1.001-1.035); Urobilinogen,Urine <2.0 mg/dL (<2.0); WBC,Urine <1 /hpf (0-5)
[2021-11-04] MEDS: GABAPENTIN 300 MG CAP PO SCH ×3 (13:16→22:22)
--- NOTE | 2021-11-04 16:54 | P.PN ---
Subjective Progress Note Date: 11/04/21 (delayed charting seen at 0945) Principal diagnosis: confusion Patient is a 61-year-old male for history of lymphoma with last immunotherapy last month, COPD, and tobacco abuse who presented to the ER with complaints of shortness of breath. He had been to urgent care earlier and was found to have COVID-19. Laboratory analysis in the ER was remarkable for white blood cell count of 44 with smudge cells present, sodium 133, LDH 841, CRP 13. Chest x-ray was consistent with CHF versus COVID-19 pneumonia. Patient underwent chest CTA which demonstrated no evidence of central or lobar pulmonary embolism, diffuse thoracic and upper abdominal lymphadenopathy and severe splenomegaly as well as COPD and a moderate left-sided pleural effusion. CT head showed no acute intracranial abnormality. His fundi be febrile on admission with a temperature of 101.9 he was tachycardic with a pulse of 114 and he was satting 86% on 6 L nasal cannula. ABG demonstrated a preserved pH with a CO2 of 46. In the ER he was given a dose of Tylenol and started on IV fluids. He was admitted for further monitoring. He was seen by pulmonary who agreed with Decadron and Gibran enox. Patient seen and examined at bedside. He is having some back pain today. He states his breathing is the same as yesterday and not much worse than his normal. He denies any nausea or vomiting. He states he has been eating and drinking well. General: Ill appearing, mild distress, appears at stated age Derm: warm, dry Head: atraumatic, normocephalic, symmetric Eyes: EOMI, no lid lag, anicteric sclera Mouth: no lip lesion, mucus membranes moist Cardiovascular: S1S2 reg, no murmur, positive posterior tibial pulse bilateral, Lungs: Coarse breath sounds bilateral, no rhonchi, no rales , no accessory muscle use, 3 word conversational dyspnea Abdominal: soft, nontender to palpation, no guarding, no appreciable organomegaly Ext: no gross muscle atrophy, no edema, no contractures Neuro: CN II-XI grossly intact, no focal neuro deficits Psych: Alert, oriented, appropriate affect Assessment/Plan: COVID-19 pneumonitis Acute hypoxic respiratory failure COPD without acute exacerbation Toxic metabolic encephalopathy -Dexamethasone D#2/10 -Pulmonary recs appreciated - zinc, vitamin C, and vitamin D -Follow Covid inflammatory markers, though these will likely be unreliable secondary to his known lymphoma -Pulmonary hygiene -Bronchodilators as needed Chronic Back pain -Gabapentin (just below home dose) and Oxy IR Lymphoma with white blood cell count 44 and thrombocytopenia -Discussed with Dr. Sigala- flow pending as outpatient -Follow CBC Hyponatremia -Likely multifactorial with suspected due to insensible water losses -IV fluids -Repeat in a.m. Hypertension, controlled -Resume home metoprolol -Follow blood pressures Dyslipidemia -Statin Tobacco absue - cessation - nicotine replacement updated over the phone DVT prophylaxis: Lovenox Discussed with: Patient, nursing Anticipated discharge date: undetermined Anticipated discharge place: undetermined A total of 35 minutes was spent on the care of this complex patient more than 50% of the time was spent in counseling and care coordination. Objective - Vital Signs Vital signs: Vital Signs Temp 98.0 F 11/04/21 08:00 Pulse 117 H 11/04/21 14:00 Resp 24 11/04/21 14:00 BP 146/91 11/04/21 12:00 Pulse Ox 90 L 11/04/21 12:00 Intake & Output 11/03/21 11/04/21 11/04/21 18:59 06:59 18:59 Intake Total 615 100 Output Total 1000 800 Balance -385 -700 Weight 79.379 kg 79.379 kg 69.6 kg Intake: Intake, IV Titration 375 Amount Sodium Chloride 0.9% 1, 375 000 ml @ 75 mls/hr IV . [id number] [facility] Rx#:[id number] Oral 240 100 Output: Urine 1000 800 Other: Voiding Method Urinal Urinal # Bowel Movements 1 - Labs CBC & Chem 7: 11/04/21 05:31 11/04/21 05:31 Labs: Abnormal Lab Results - Last 24 Hours (Table) 11/03/21 11/03/21 11/04/21 Range/Units 14:04 17:32 05:31 WBC 46.9 H (3.8-10.6) k/uL RBC 4.13 L (4.30-5.90) m/uL Hgb 12.1 L (13.0-17.5) gm/dL Hct 37.4 L (39.0-53.0) % Plt Count 102 L (150-450) k/uL Neutrophils # 9.4 H (1.3-7.7) k/uL Lymphocytes # 35.2 H (1.0-4.8) k/uL Basophils # 0.3 H (0-0.2) k/uL D-Dimer (<0.60) mg/L FEU ABG pCO2 46 H (35-45) mmHg ABG pO2 65 L (83-108) mmHg ABG HCO3 27 H (21-25) mmol/L ABG Total CO2 28 H (19-24) mmol/L ABG O2 Saturation 93.7 L (94-97) % Sodium (137-145) mmol/L Glucose (74-99) mg/dL POC Glucose (mg/dL) (75-99) mg/dL AST (17-59) U/L Alkaline Phosphatase (38-126) U/L Lactate Dehydrogenase (313-618) U/L Total Protein (6.3-8.2) g/dL Procalcitonin 0.21 H (0.02-0.09) ng/mL Urine Protein (Negative) Urine Ketones (Negative) Urine Blood (Negative) 11/04/21 11/04/21 11/04/21 Range/Units 05:31 05:31 05:31 WBC (3.8-10.6) k/uL RBC (4.30-5.90) m/uL Hgb (13.0-17.5) gm/dL Hct (39.0-53.0) % Plt Count (150-450) k/uL Neutrophils # (1.3-7.7) k/uL Lymphocytes # (1.0-4.8) k/uL Basophils # (0-0.2) k/uL D-Dimer 7.76 H (<0.60) mg/L FEU ABG pCO2 (35-45) mmHg ABG pO2 (83-108) mmHg ABG HCO3 (21-25) mmol/L ABG Total CO2 (19-24) mmol/L ABG O2 Saturation (94-97) % Sodium 132 L (137-145) mmol/L Glucose 119 H (74-99) mg/dL POC Glucose (mg/dL) (75-99) mg/dL AST 62 H (17-59) U/L Alkaline Phosphatase 161 H (38-126) U/L Lactate Dehydrogenase 847 H (313-618) U/L Total Protein 6.2 L (6.3-8.2) g/dL Procalcitonin 0.23 H (0.02-0.09) ng/mL Urine Protein (Negative) Urine Ketones (Negative) Urine Blood (Negative) 11/04/21 11/04/21 Range/Units 11:44 12:02 WBC (3.8-10.6) k/uL RBC (4.30-5.90) m/uL Hgb (13.0-17.5) gm/dL Hct (39.0-53.0) % Plt Count (150-450) k/uL Neutrophils # (1.3-7.7) k/uL Lymphocytes # (1.0-4.8) k/uL Basophils # (0-0.2) k/uL D-Dimer (<0.60) mg/L FEU ABG pCO2 (35-45) mmHg ABG pO2 (83-108) mmHg ABG HCO3 (21-25) mmol/L ABG Total CO2 (19-24) mmol/L ABG O2 Saturation (94-97) % Sodium (137-145) mmol/L Glucose (74-99) mg/dL POC Glucose (mg/dL) 101 H (75-99) mg/dL AST (17-59) U/L Alkaline Phosphatase (38-126) U/L Lactate Dehydrogenase (313-618) U/L Total Protein (6.3-8.2) g/dL Procalcitonin (0.02-0.09) ng/mL Urine Protein 1+ H (Negative) Urine Ketones 1+ H (Negative) Urine Blood Trace H (Negative) Microbiology - Last 24 Hours (Table) 11/03/21 13:53 Blood Culture - Preliminary Blood No Growth after 24 hours 11/03/21 14:03 Blood Culture - Preliminary Blood No Growth after 24 hours
[2021-11-04 17:12] LABS: Glucose,Whole Blood 126 mg/dL (75-99)
[2021-11-04] MEDS: ALBUTEROL HFA INHALER INHALATION PRN ×2 (17:41→19:23)
[2021-11-04] MEDS: SYMBICORT 160-4.5 MCG INHALER INHALATION SCH (19:23)
[2021-11-04] MEDS: PRAVASTATIN SODIUM 40 MG TAB PO SCH (20:37)
[2021-11-05] MEDS: ACETAMINOPHEN TAB 325 MG TAB PO PRN ×2 (01:58→20:45)
[2021-11-05] MEDS: SODIUM CHLORIDE 0.9% 1,000 ML IV SCH ×2 (01:58→05:03)
[2021-11-05 06:10] LABS: HCT 39.6 % (39.0-53.0); HGB 12.8 gm/dL (13.0-17.5); Hypochromasia Slight; MCH 29.2 pg (25.0-35.0); MCHC 32.3 g/dL (31.0-37.0); MCV 90.3 fL (80.0-100.0); Mean Platelet Volume 8.3; Platelet Count 104 k/uL (150-450); RBC 4.39 m/uL (4.30-5.90); RDW 15.5 % (11.5-15.5)
[2021-11-05 06:13] LABS: WBC 78.8 k/uL (3.8-10.6)
[2021-11-05 06:18] LABS: ALT 26 U/L (4-49); AST 62 U/L (17-59); African American GFR (CKD) >90 (>60 ml/min/1.73 sqM); Albumin 3.4 g/dL (3.5-5.0); Alkaline Phosphatase 152 U/L (38-126); Anion Gap 8 mmol/L; Blood Urea Nitrogen 20 mg/dL (9-20); Calcium 8.2 mg/dL (8.4-10.2); Carbon Dioxide 26 mmol/L (22-30); Chloride 99 mmol/L (98-107); Glucose 107 mg/dL (74-99); LDH 1135 U/L (313-618); Non-African American GFR(CKD) >90 (>60 ml/min/1.73 sqM); Potassium 4.4 mmol/L (3.5-5.1); Sodium 133 mmol/L (137-145); Total Bilirubin 0.8 mg/dL (0.2-1.3); Total Protein 6.3 g/dL (6.3-8.2)
[2021-11-05] MEDS: SYMBICORT 160-4.5 MCG INHALER INHALATION SCH ×2 (09:14→21:58)
[2021-11-05] MEDS: DEXAMETHASONE SOD PHOSPHATE 10 MG/ML 1 ML VIAL IVP SCH (09:39)
[2021-11-05] MEDS: TAMSULOSIN 0.4 MG CAP.ER.24H PO SCH (09:39)
[2021-11-05] MEDS: NICOTINE 14MG/24HR PATCH TRANSDERM SCH (09:39)
[2021-11-05] MEDS: GABAPENTIN 300 MG CAP PO SCH ×3 (09:39→20:45)
[2021-11-05] MEDS: ENOXAPARIN 40 MG/0.4 ML SYRINGE SQ SCH (09:39)
[2021-11-05] MEDS: FERROUS SULFATE 325 MG TAB PO SCH (09:39)
[2021-11-05] MEDS: METOPROLOL SUCCINATE (ER) 50 MG TAB.ER.24H PO SCH (09:39)
[2021-11-05] MEDS ORDERED: FUROSEMIDE 10 MG/ML 4 ML VIAL IV STA (10:17)
[2021-11-05] MEDS: LORazepam 2 MG/ML INJ IV PRN ×2 (10:51→21:22)
[2021-11-05] MEDS: KETOROLAC 30 MG/ML 1 ML VIAL IVP PRN ×2 (10:51→23:58)
--- NOTE | 2021-11-05 13:45 | P.PN ---
Subjective Progress Note Date: 11/05/21 (delayed charting seen at 1030) Principal diagnosis: confusion Patient is a 61-year-old male for history of lymphoma with last immunotherapy last month, COPD, and tobacco abuse who presented to the ER with complaints of shortness of breath. He had been to urgent care earlier and was found to have COVID-19. Laboratory analysis in the ER was remarkable for white blood cell count of 44 with smudge cells present, sodium 133, LDH 841, CRP 13. Chest x-ray was consistent with CHF versus COVID-19 pneumonia. Patient underwent chest CTA which demonstrated no evidence of central or lobar pulmonary embolism, diffuse thoracic and upper abdominal lymphadenopathy and severe splenomegaly as well as COPD and a moderate left-sided pleural effusion. CT head showed no acute intracranial abnormality. His fundi be febrile on admission with a temperature of 101.9 he was tachycardic with a pulse of 114 and he was satting 86% on 6 L nasal cannula. ABG demonstrated a preserved pH with a CO2 of 46. In the ER he was given a dose of Tylenol and started on IV fluids. He was admitted for further monitoring. He was seen by pulmonary who agreed with Decadron and Lovenox. His O2 requirement increased on 11/05 requiring Airvo. His confusion again increased. Patient seen and examined at bedside. He reports increasing difficulty breathing, pain around the bottom of his rib cage, nausea, and overall just not feeling "right". He states he feels terrible. He also is talking about his being just outside the room and being outside gardening yesterday. General: Ill appearing, moderate distress, appears at stated age Derm: warm, dry Head: atraumatic, normocephalic, symmetric Eyes: EOMI, no lid lag, anicteric sclera Mouth: no lip lesion, mucus membranes moist Cardiovascular: S1S2 reg, no murmur, positive posterior tibial pulse bilateral, Lungs: Coarse breath sounds bilateral + accessory muscle use, + conversational dyspnea 3 word Abdominal: soft, nontender to palpation, no guarding, \\palpable splenomegaly Ext: no gross muscle atrophy, no edema, no contractures Neuro: CN II-XI grossly intact, no focal neuro deficits Psych: Alert and oriented to self and year, confused and appears anxious Assessment/Plan: COVID-19 pneumonitis Acute hypoxic respiratory failure COPD without acute exacerbation Toxic metabolic encephalopathy -Dexamethasone D#3/ -Pulmonary recs appreciated - zinc, vitamin C, and vitamin D -Follow Covid inflammatory markers, though these will likely be unreliable secondary to his known lymphoma -Pulmonary hygiene -Bronchodilators as needed - on AIRVO 11/05 - Lasix X 1 now, stop IV fluids - d/w pulmonary Chronic Back pain -Gabapentin (just below home dose) and Oxy IR Lymphoma with white blood cell count 78 and thrombocytopenia -Discussed with Dr. Sigala- flow pending as outpatient, no conerns of leukostasis -follow CBC Hyponatremia -Likely multifactorial with suspected due to insensible water losses -IV fluids -Repeat in a.m. Hypertension, controlled - metoprolol -Follow blood pressures Dyslipidemia -Statin Tobacco absue - cessation - nicotine replacement updated over the phone on worseing status and initiation of airvo DVT prophylaxis: Lovenox Discussed with: Patient, nursing Anticipated discharge date: undetermined Anticipated discharge place: undetermined A total of 45 minutes was spent on the care of this complex patient more than 50% of the time was spent in counseling and care coordination. Objective - Vital Signs Vital signs: Vital Signs Temp 98.5 F 11/05/21 12:00 Pulse 134 H 11/05/21 12:14 Resp 24 11/05/21 12:14 BP 134/84 11/05/21 12:00 Pulse Ox 91 L 11/05/21 12:00 Intake & Output 11/04/21 11/05/21 11/05/21 18:59 06:59 18:59 Intake Total 580 240 Output Total 1225 300 600 Balance -645 -300 -360 Weight 69.6 kg Intake: Oral 580 240 Output: Urine 1225 300 600 Other: Voiding Method Urinal Urinal # Bowel Movements 1 - Labs CBC & Chem 7: 11/05/21 05:08 11/05/21 05:08 Labs: Abnormal Lab Results - Last 24 Hours (Table) 11/04/21 11/05/21 11/05/21 Range/Units 16:53 05:08 05:08 WBC 78.8 H* (3.8-10.6) k/uL Hgb 12.8 L (13.0-17.5) gm/dL Plt Count 104 L (150-450) k/uL D-Dimer 6.94 H (<0.60) mg/L FEU Sodium (137-145) mmol/L Glucose (74-99) mg/dL POC Glucose (mg/dL) 126 H (75-99) mg/dL Calcium (8.4-10.2) mg/dL AST (17-59) U/L Alkaline Phosphatase (38-126) U/L Lactate Dehydrogenase (313-618) U/L Albumin (3.5-5.0) g/dL 11/05/21 Range/Units 05:08 WBC (3.8-10.6) k/uL Hgb (13.0-17.5) gm/dL Plt Count (150-450) k/uL D-Dimer (<0.60) mg/L FEU Sodium 133 L (137-145) mmol/L Glucose 107 H (74-99) mg/dL POC Glucose (mg/dL) (75-99) mg/dL Calcium 8.2 L (8.4-10.2) mg/dL AST 62 H (17-59) U/L Alkaline Phosphatase 152 H (38-126) U/L Lactate Dehydrogenase 1135 H (313-618) U/L Albumin 3.4 L (3.5-5.0) g/dL Microbiology - Last 24 Hours (Table) 11/03/21 13:53 Blood Culture - Preliminary Blood No Growth after 24 hours 11/03/21 14:03 Blood Culture - Preliminary Blood No Growth after 24 hours
--- NOTE | 2021-11-05 14:05 | P.PN ---
Subjective Progress Note Date: 11/05/21 Principal diagnosis: COVID pneumonia. Pulmonary consult dated 11/04/2021. 61-year-old male, seen in consultation. The patient was initially seen in the emergency department, on November 03. He was brought in by EMS for shortness of breath. In addition, he had fever, chills, and dry cough. He's been sick for 3-4 days. Initially, the patient's saturation on room air was only 70%. Currently, the patient is on 10 L high flow O2. The patient's getting saline at 75 mL an hour. He apparently is only been sick for about or days. His primary care physician is Dr. Srivastava. He did receive the Moderna vaccine. The patient has a history of COPD from ongoing tobacco use, and also has a history of lymphoma. His last chemotherapy was apparently last month. He appears to also have hypertension, and hyperlipidemia. White count 46.9, hemoglobin 12.1, hematocrit 37.4, and platelet count 102,000. D-dimer is 7.76. Blood gases show pO2 of 65, pCO2 of 46, and a pH is 7.38. Sodium 132, potassium 4.9, chlorides 100, CO2 26, anion gap 6, BUN 17, creatinine 0.85. LDH is 847. Pro-calcitonin level was 0.21. Chest x-ray shows patchy bilateral infiltrates. The CT angiog alfonso was negative for pulmonary embolism, but did show diffuse thoracic adenopathy consistent with the patient's known diagnosis of lymphoma. There may also be a component of fluid overload/interstitial edema. Progress note dated 11/05/2021. 61-year-old male, seen again in follow-up. He is in room 351. Currently, the patient is on a nonrebreather mask, and on AIRVO, at 60 L/m with an FiO2 of 93%. His pulse ox saturation is 94%. He is on saline at KVO. Currently, the patient is mildly tachypnea. He looks a bit worse and he did yesterday. I did alert the discharge nurse, that he may end up coming to the intensive care unit, and may end up on BiPAP and/or require intubation/mechanical ventilation. White count 78.8, hemoglobin 12.8, hematocrit 39.6, and platelet count 104,000. D-dim er 6.94. Sodium 133, potassium chloride CO2 anion gap BUN and creatinine are all normal. Initial pro-calcitonin level was 0.23. It was repeated. Blood cultures are currently negative. Objective - Vital Signs Vital signs: Vital Signs Temp 98.5 F 11/05/21 12:00 Pulse 134 H 11/05/21 12:14 Resp 24 11/05/21 12:14 BP 134/84 11/05/21 12:00 Pulse Ox 91 L 11/05/21 12:00 Intake & Output 11/04/21 11/05/21 11/05/21 18:59 06:59 18:59 Intake Total 580 240 Output Total 1225 300 600 Balance -645 -300 -360 Weight 69.6 kg Intake: Oral 580 240 Output: Urine 1225 300 600 Other: Voiding Method Urinal Urinal # Bowel Movements 1 - Exam Mild conversational dyspnea. The patient is a bit tachypneic today. He is cur rently on AIRVO, and a nonrebreather mask. Saturations are 94%. HEENT examination is grossly unremarkable. Neck supple. Full range of motion. No adenopathy thyromegaly or neck vein distention. Cardiovascular examination reveals regular rhythm rate. S1-S2 normal. No S3 or S4. No discernible murmur noted. Heart sounds distant. Heart rate 134 bpm. Lungs reveal coarse bilateral rhonchi, and bibasilar crackles. No wheezes. Breath sounds equal bilaterally. Saturations are 94% on the AIRVO, and nonrebreather mask. Abdomen soft bowel sounds are heard. No masses or tenderness. Extremities are intact. No cyanosis clubbing or edema. Skin is without rash or lesion. Neurologic examination is brief but nonfocal. - Labs CBC & Chem 7: 11/05/21 05:08 11/05/21 05:08 Labs: Abnormal Lab Results - Last 24 Hours (Table) 11/04/21 11/05/21 11/05/21 Range/Units 16:53 05:08 05:08 WBC 78.8 H* (3.8-10.6) k/uL Hgb 12.8 L (13.0-17.5) gm/dL Plt Count 104 L (150-450) k/uL D-Dimer 6.94 H (<0.60) mg/L FEU Sodium (137-145) mmol/L Glucose (74-99) mg/dL POC Glucose (mg/dL) 126 H (75-99) mg/dL Calcium (8.4-10.2) mg/dL AST (17-59) U/L Alkaline Phosphatase (38-126) U/L Lactate Dehydrogenase (313-618) U/L Albumin (3.5-5.0) g/dL 11/05/21 Range/Units 05:08 WBC (3.8-10.6) k/uL Hgb (13.0-17.5) gm/dL Plt Count (150-450) k/uL D-Dimer (<0.60) mg/L FEU Sodium 133 L (137-145) mmol/L Glucose 107 H (74-99) mg/dL POC Glucose (mg/dL) (75-99) mg/dL Calcium 8.2 L (8.4-10.2) mg/dL AST 62 H (17-59) U/L Alkaline Phosphatase 152 H (38-126) U/L Lactate Dehydrogenase 1135 H (313-618) U/L Albumin 3.4 L (3.5-5.0) g/dL Microbiology - Last 24 Hours (Table) 11/03/21 13:53 Blood Culture - Preliminary Blood No Growth after 24 hours 11/03/21 14:03 Blood Culture - Preliminary Blood No Growth after 24 hours Assessment and Plan Assessment: Acute hypoxemic respiratory failure, which might be multifactorial, in part related to coronavirus associated pneumonia, fluid overload, and possible COPD exacerbation. In addition, there may be a component of bacterial infection. History of hypertension. History of hyperlipidemia. History of ongoing tobacco use, with suspected COPD. History of lymphoma, probably CLL. Plan: Plan dated 11/04/2021. Currently, the patient's receiving Decadron, and Lovenox. The patient should also be placed on vitamin C, vitamin D3, and zinc. In addition, will enhance his treatment for COPD. The patient may also benefit from a dose of diuretics. Additional recommendations and suggestions are forthcoming. We will continue to follow make recommendations where appropriate. Prognosis is guarded. Plan dated 11/05/2021. The patient's currently on Decadron and Lovenox. The patient is also receiving vitamins. His respiratory status has declined somewhat overnight. Yesterday he was on 10 L high flow O2. Currently, he's on a nonrebreather mask, and AIRVO at 60 L/m with an FiO2 of 93%. The patient's saturations are 94%. I don't have room in the ICU for the patient currently. The primary service is asked about JLUIS. I am concerned about infection. Repeat pro-calcitonin level was ordered. His white count has significantly increased. Time with Patient: Less than 30
--- NOTE | 2021-11-05 15:13 | P.CONS ---
History of Present Illness - Reason for Consult Consult date: 11/05/21 Leukocytosis, history of mantle cell lymphoma Requesting physician: Delmy Alarcon - Chief Complaint Shortness of breath - History of Present Illness Mr. Alegria is a pleasant male pt of Dr. Coronel with multiple well-controlled medical problems. Routine labs done on 08/08/20 showed WBC increased to 18.15, Hgb 13.7, plt 145, diff showed absolute lymphocytosis at 12.74. He was therefore referred to Dr. CORONEL for further evaluation and recommendations. notable findings included elevated CRP at 13.34, Iron studies showed a saturation of 10.36%. Patient had labs from about a year prior, at which time, WBC was in the 10-11 range, with normal differential. Additional labs, CT scans, flow cytometry confirmed a monoclonal CD 5 positive population of B lymphocytes. CT scans confirmed marked splenomegaly, no other significant adenopathy. Subsequently had a FISH study which was positive for 11:14 translocation, confirming mantle cell lymphoma. He was started on BR regimen 12/05/20, had 6 cycles. He was then placed on maintenance Rituxan. CT scans after completion of chemotherapy showed decrease in spleen size and in size of the splenic lesions. Solid lesion was mentioned in the right kidney, that was not mentioned on prior reports. Patient had an ultrasound that confirmed the presence of a 3.2 cm solid vascular lesion in the inferior pole of the right kidney. He was seen by Urology for the same, and had a MRI on 07/21/21. He had right partial nephrectomy at [facility], robotic-assisted laparoscopic, in late 09/11. He was seen in the ofc in the last week for f/u, flow pending. He is now admitted to the hospital wit covid infection, he is vaccinated. We have been asked to see him for leukocytosis. Pt is progressively feeling worse, increasing SOB, weakness. H Review of Systems 10 point review of systems is negative except as stated in HPI Past Medical History Past Medical History: Cancer, COPD, Hyperlipidemia, Hypertension Additional Past Medical History / Comment(s): Lymphoma-last chemo last month, BPH, Splenomegally History of Any Multi-Drug Resistant Organisms: None Reported Past Surgical History: Orthopedic Surgery Additional Past Surgical History / Comment(s): Bilateral shoulder surgery, Back surgery, Left knee surgery, Tumor removed from right kidney Aug 2021. Past Psychological History: No Psychological Hx Reported Smoking Status: Current every day smoker Past Alcohol Use History: None Reported Past Drug Use History: None Reported - Past Family History Father Additional Family Medical History / Comment(s): lung cancer Mother Family Medical History: Dementia Medications and Allergies Home Medications Medication Instructions Recorded Confirmed Type Albuterol Inhaler [Ventolin Hfa 2 puff INHALATION RT-Q6H PRN 11/03/21 11/03/21 History Inhaler] Ferrous Sulfate [Feosol] 325 mg PO DAILY 11/03/21 11/03/21 History Gabapentin 800 mg PO QID 11/03/21 11/03/21 History Metoprolol Succinate (ER) [Toprol 50 mg PO DAILY 11/03/21 11/03/21 History Xl] Pravastatin Sodium [Pravachol] 40 mg PO HS 11/03/21 11/03/21 History Tamsulosin HCl [Flomax] 0.4 mg PO DAILY 11/03/21 11/03/21 History oxyCODONE HCL [oxyCODONE HCL (IR)] 30 mg PO Q6H 11/03/21 11/03/21 History Allergies Allergy/AdvReac Type Severity Reaction Status Date / Time bupropion [From Zyban] Allergy Unknown Verified 11/03/21 14:31 doxycycline Allergy Rash/Hives Verified 11/03/21 18:33 Physical Exam Vitals: Vital Signs Temp Pulse Resp BP Pulse Ox 11/05/21 08:00 98.5 F 134 H 24 154/99 82 L 11/05/21 04:00 98.4 F 112 H 22 152/85 93 L 11/05/21 02:00 120 H 22 11/04/21 22:00 98.7 F 11/04/21 20:00 102.6 F H 120 H 22 136/84 89 L 11/04/21 19:23 89 L 11/04/21 16:00 99.1 F 119 H 143/99 90 L 11/04/21 14:00 117 H 24 11/04/21 12:00 117 H 146/91 90 L Intake and Output 11/04/21 11/05/21 11/05/21 22:59 06:59 14:59 Intake Total 480 240 Output Total 1175 600 Balance -695 -360 Intake: Oral 480 240 Output: Urine 1175 600 Other: Voiding Method Urinal Urinal - Constitutional General appearance: average body habitus, cooperative, mild distress - EENT Eyes: anicteric sclerae, EOMI ENT: hearing grossly normal, normal oropharynx - Neck Neck: no lymphadenopathy - Respiratory Respiratory: bilateral: diminished - Cardiovascular Rhythm: other (Tachycardia) Heart sounds: normal: S1, S2 Abnormal Heart Sounds: no systolic murmur, no diastolic murmur, no rub, no S3 Gallop, no S4 Gallop, no click, no other leg Peripheral Edema: bilateral: None - Gastrointestinal General gastrointestinal: no absent bowel sounds, no decreased bowel sounds, no distended, no hepatomegaly, no hyperactive bowel sounds, normal bowel sounds, no organomegaly, no rigid, no scaphoid, soft, no splenomegaly, no tenderness, no umbilical hernia, no ventral hernia - Neurologic Neurologic: CNII-XII intact - Musculoskeletal Musculoskeletal: generalized weakness - Psychiatric Psychiatric: A&O x's 3, appropriate affect, intact judgment & insight Results CBC & Chem 7: 11/05/21 05:08 11/05/21 05:08 Labs: Abnormal Lab Results - Last 24 Hours (Table) 11/04/21 11/04/21 11/04/21 Range/Units 11:44 12:02 16:53 WBC (3.8-10.6) k/uL Hgb (13.0-17.5) gm/dL Plt Count (150-450) k/uL D-Dimer (<0.60) mg/L FEU Sodium (137-145) mmol/L Glucose (74-99) mg/dL POC Glucose (mg/dL) 101 H 126 H (75-99) mg/dL Calcium (8.4-10.2) mg/dL AST (17-59) U/L Alkaline Phosphatase (38-126) U/L Lactate Dehydrogenase (313-618) U/L Albumin (3.5-5.0) g/dL Urine Protein 1+ H (Negative) Urine Ketones 1+ H (Negative) Urine Blood Trace H (Negative) 11/05/21 11/05/21 11/05/21 Range/Units 05:08 05:08 05:08 WBC 78.8 H* (3.8-10.6) k/uL Hgb 12.8 L (13.0-17.5) gm/dL Plt Count 104 L (150-450) k/uL D-Dimer 6.94 H (<0.60) mg/L FEU Sodium 133 L (137-145) mmol/L Glucose 107 H (74-99) mg/dL POC Glucose (mg/dL) (75-99) mg/dL Calcium 8.2 L (8.4-10.2) mg/dL AST 62 H (17-59) U/L Alkaline Phosphatase 152 H (38-126) U/L Lactate Dehydrogenase 1135 H (313-618) U/L Albumin 3.4 L (3.5-5.0) g/dL Urine Protein (Negative) Urine Ketones (Negative) Urine Blood (Negative) Microbiology - Last 24 Hours (Table) 11/03/21 13:53 Blood Culture - Preliminary Blood No Growth after 24 hours 11/03/21 14:03 Blood Culture - Preliminary Blood No Growth after 24 hours Chest x-ray: report reviewed CT scan - chest: report reviewed CT Scan - head: report reviewed Assessment and Plan (1) Leukocytosis Narrative/Plan: Pt was seen in office 8 days ago for f/u, still pending flow cytometry. His lymphocyte percentage was 75% at that time. Contributing factors include inflammation, acute covid infection and steroids can be contributing to WBC/lymph elevation. Lymphs could be increased 2/2 progression of disease. Unfortunately, if this is disease progression, pt cannot have treatment at time with covid infection. Elevated WBC/lymphs in this case are more mature cells therefore risk of leukostasis is decreased vs if blasts/immature cells. Dr. Coronel did discuss case with Attending. STAT Ig levels. Will order IVIG if appropriate. Current Visit: Yes Status: Chronic Priority: Medium Code(s): D72.829 - ELEVATED WHITE BLOOD CELL COUNT, UNSPECIFIED SNOMED Code(s): 540959629 (2) Mantle cell lymphoma Current Visit: Yes Status: Chronic Priority: Medium Code(s): C83.10 - MANTLE CELL LYMPHOMA, UNSPECIFIED SITE SNOMED Code(s): 127153847 Plan: Doctor attests: I performed a history and physical examination of this patient, developed impression and plan of care. Discussed with dictator. I agree with dictators note, documented as a scribe.
[2021-11-05] MEDS: ALBUTEROL HFA INHALER INHALATION PRN ×2 (16:23→21:58)
[2021-11-05] MEDS: PRAVASTATIN SODIUM 40 MG TAB PO SCH (20:45)
[2021-11-06] MEDS: LORazepam 2 MG/ML INJ IV PRN ×4 (06:25→19:04)
[2021-11-06] MEDS: ALBUTEROL HFA INHALER INHALATION PRN (07:26)
[2021-11-06] MEDS: SYMBICORT 160-4.5 MCG INHALER INHALATION SCH (07:26)
[2021-11-06] MEDS: ENOXAPARIN 40 MG/0.4 ML SYRINGE SQ SCH (07:51)
[2021-11-06] MEDS: METOPROLOL SUCCINATE (ER) 50 MG TAB.ER.24H PO SCH (07:51)
[2021-11-06] MEDS: GABAPENTIN 300 MG CAP PO SCH (07:52)
[2021-11-06] MEDS: FERROUS SULFATE 325 MG TAB PO SCH (07:52)
[2021-11-06] MEDS: NICOTINE 14MG/24HR PATCH TRANSDERM SCH (07:52)
[2021-11-06] MEDS: DEXAMETHASONE SOD PHOSPHATE 10 MG/ML 1 ML VIAL IVP SCH (07:53)
[2021-11-06] MEDS: TAMSULOSIN 0.4 MG CAP.ER.24H PO SCH (07:53)
[2021-11-06 08:09] LABS: ALT 31 U/L (4-49); AST 86 U/L (17-59); African American GFR (CKD) >90 (>60 ml/min/1.73 sqM); Albumin 3.5 g/dL (3.5-5.0); Alkaline Phosphatase 145 U/L (38-126); Anion Gap 7 mmol/L; Blood Urea Nitrogen 32 mg/dL (9-20); Calcium 8.2 mg/dL (8.4-10.2); Carbon Dioxide 29 mmol/L (22-30); Chloride 98 mmol/L (98-107); Glucose 102 mg/dL (74-99); LDH 1279 U/L (313-618); Non-African American GFR(CKD) >90 (>60 ml/min/1.73 sqM); Sodium 134 mmol/L (137-145); Total Bilirubin 0.9 mg/dL (0.2-1.3); Total Protein 6.5 g/dL (6.3-8.2)
[2021-11-06 08:11] LABS: INR 0.9 (<1.2); Prothrombin Time 9.7 sec (9.0-12.0)
[2021-11-06] MEDS ORDERED: FUROSEMIDE 10 MG/ML 4 ML VIAL IV STA (08:13)
[2021-11-06] MEDS ORDERED: HYDROmorphone 0.5 MG/0.5 ML SYRINGE IVP PRN (08:18)
[2021-11-06] MEDS ORDERED: METOPROLOL TARTRATE 5 MG/5 ML VIAL IVP PRN (08:19)
[2021-11-06 08:23] LABS: Anisocytosis Slight; HCT 43.6 % (39.0-53.0); HGB 14.1 gm/dL (13.0-17.5); Hypochromasia Slight; MCH 29.6 pg (25.0-35.0); MCHC 32.4 g/dL (31.0-37.0); MCV 91.3 fL (80.0-100.0); Mean Platelet Volume 8.4; Platelet Count 103 k/uL (150-450); RBC 4.77 m/uL (4.30-5.90); RDW 16.1 % (11.5-15.5)
[2021-11-06 08:24] LABS: ABG Base Excess 4.8 mmol/L; ABG HCO3 26 mmol/L (21-25); ABG Oxygen Saturation 97.2 % (94-97); ABG PCO2 26 mmHg (35-45); ABG PO2 123 mmHg (83-108); ABG TCO2 27 mmol/L (19-24); Allen Test Performed? Yes
[2021-11-06 08:24] LABS: Glucose,Whole Blood 91 mg/dL (75-99)
[2021-11-06 08:26] LABS: ABG PH 7.61 (7.35-7.45)
--- NOTE | 2021-11-06 08:28 | P.EN ---
A- team: Indication: Hypoxemia Arrived on Scene to find: O2 at 80% Patient seen and examined at bedside. He is short of beath and confused. Vital signs reviewed General:ill appearing, maximal distress, appears at stated age Derm: warm, dry Head: atraumatic, normocephalic, symmetric Eyes: EOMI, no lid lag, anicteric sclera Mouth: no lip lesion, mucus membranes moist Cardiovascular: S1S2 reg, no murmur, positive posterior tibial pulse bilateral, Lungs: course bs bilateral, + accessory muscle use, + 3- word conversational dyspnea Abdominal: soft, nontender to palpation, no guarding, + palpable splenomegally Ext: no gross muscle atrophy, no edema, no contractures Neuro: CN II-XI grossly intact, no focal neuro deficits Psych: Awake, confused, anxious Assessment: COVID-19 pneumonitis Acute hypoxic respiratory failure COPD without acute exacerbation Toxic metabolic encephalopathy Plan: Check ABG Stat d-dimer CTA chest Disposition: Remian on 3S BiPap started Notified: Dr. Viera Via [employer] updated over the phone Full Code has been verified multiple times in the past A Total of 32 minutes of critical care time was spent on the complex care of this patient.
--- NOTE | 2021-11-06 08:32 | P.PN ---
Subjective Progress Note Date: 11/06/21 Principal diagnosis: confusion Patient is a 61-year-old male for history of lymphoma with last immunotherapy last month, COPD, and tobacco abuse who presented to the ER with complaints of shortness of breath. He had been to urgent care earlier and was found to have COVID-19. Laboratory analysis in the ER was remarkable for white blood cell count of 44 with smudge cells present, sodium 133, LDH 841, CRP 13. Chest x-ray was consistent with CHF versus COVID-19 pneumonia. Patient underwent chest CTA which demonstrated no evidence of central or lobar pulmonary embolism, diffuse thoracic and upper abdominal lymphadenopathy and severe splenomegaly as well as COPD and a moderate left-sided pleural effusion. CT head showed no acute intracranial abnormality. His fundi be febrile on admission with a temperature of 101.9 he was tachycardic with a pulse of 114 and he was satting 86% on 6 L nasal cannula. ABG demonstrated a preserved pH with a CO2 of 46. In the ER he was given a dose of Tylenol and started on IV fluids. He was admitted for further monitoring. He was seen by pulmonary who agreed with Decadron and Lovenox. His O2 requirement increased on 11/05 requiring Airvo. His confusion again increased. Patient seen and examined at bedside. Hypoxic again overnight, increased confusion, required restraints See physical exam from event note. Assessment/Plan: COVID-19 pneumonitis Acute hypoxic respiratory failure COPD without acute exacerbation Toxic metabolic encephalopathy -Dexamethasone D#4/10 - started on BiPap 11/06 - CTA chest if able, stat d-dimer -Pulmonary recs appreciated d/w pulmonary - zinc, vitamin C, and vitamin D -Follow Covid inflammatory markers, though these will likely be unreliable secondary to his known lymphoma -Pulmonary hygiene -Bronchodilators as needed - on AIRVO 11/05 - Lasix X 1 now again Chronic Back pain -Gabapentin - Ovy transitioned to dilaudid so that BiPap does not need to be removed Lymphoma and thrombocytopenia -Discussed with Dr. Sigala- flow pending as outpatient, no conerns of leukostasis -follow CBC (pending this AM) Hypertension, controlled - metoprolol transitioned to IV -Follow blood pressures Dyslipidemia -Statin Tobacco absue - cessation - nicotine replacement Hyponatremia, improved updated over the phone on worseing status and initiation of BiPap DVT prophylaxis: Lovenox Discussed with: Patient, nursing Anticipated discharge date: undetermined Anticipated discharge place: undetermined No bill associated with this note. Objective - Vital Signs Vital signs: Vital Signs Temp 99.9 F H 11/06/21 04:00 Pulse 109 H 11/06/21 04:00 Resp 24 11/06/21 04:00 BP 116/63 11/06/21 04:00 Pulse Ox 89 L 11/06/21 04:00 Intake & Output 11/05/21 11/06/21 11/06/21 18:59 06:59 18:59 Intake Total 240 Output Total 1400 1200 Balance -1160 -1200 Intake: Oral 240 Output: Urine 1400 1200 Other: Voiding Method Indwelling Catheter - Labs CBC & Chem 7: 11/06/21 06:52 11/06/21 06:52 Labs: Abnormal Lab Results - Last 24 Hours (Table) 11/05/21 11/06/21 11/06/21 Range/Units 05:08 06:52 06:52 WBC 76.0 H* (3.8-10.6) k/uL RDW 16.1 H (11.5-15.5) % Plt Count 103 L (150-450) k/uL D-Dimer 5.94 H (<0.60) mg/L FEU ABG pH (7.35-7.45) ABG pCO2 (35-45) mmHg ABG pO2 (83-108) mmHg ABG HCO3 (21-25) mmol/L ABG Total CO2 (19-24) mmol/L ABG O2 Saturation (94-97) % Sodium (137-145) mmol/L BUN (9-20) mg/dL Glucose (74-99) mg/dL Calcium (8.4-10.2) mg/dL AST (17-59) U/L Alkaline Phosphatase (38-126) U/L Lactate Dehydrogenase (313-618) U/L Procalcitonin 0.23 H (0.02-0.09) ng/mL 11/06/21 11/06/21 Range/Units 06:52 08:13 WBC (3.8-10.6) k/uL RDW (11.5-15.5) % Plt Count (150-450) k/uL D-Dimer (<0.60) mg/L FEU ABG pH 7.61 H* (7.35-7.45) ABG pCO2 26 L (35-45) mmHg ABG pO2 123 H (83-108) mmHg ABG HCO3 26 H (21-25) mmol/L ABG Total CO2 27 H (19-24) mmol/L ABG O2 Saturation 97.2 H (94-97) % Sodium 134 L (137-145) mmol/L BUN 32 H (9-20) mg/dL Glucose 102 H (74-99) mg/dL Calcium 8.2 L (8.4-10.2) mg/dL AST 86 H (17-59) U/L Alkaline Phosphatase 145 H (38-126) U/L Lactate Dehydrogenase 1279 H (313-618) U/L Procalcitonin (0.02-0.09) ng/mL Microbiology - Last 24 Hours (Table) 11/03/21 14:03 Blood Culture - Preliminary Blood No Growth after 48 hours 11/03/21 13:53 Blood Culture - Preliminary Blood No Growth after 48 hours
--- NOTE | 2021-11-06 08:52 | XR ---
EXAMINATION TYPE: XR chest 1V portable DATE OF EXAM: 11/06/2021 Comparison: 11/03/2021 Clinical History: 61-year-old male COVID Findings: Heart mildly enlarged. Interstitial opacities and focal airspace opacity at the mid lungs have become slightly more confluent. Possible trace left pleural effusion. Impression: Bilateral COVID pneumonia mostly concentrated at the mid lungs has become slightly more confluent.
[2021-11-06 08:55] LABS: Lymphocytes # (M) 69.92 k/uL (1.0-4.8); Neutrophils # (M) 6.08 k/uL (1.3-7.7); Neutrophils % (M) 8 %; Nucleated Red Blood Cells 0 /100 WBC (0-0); Poikilocytosis (M) Present; Total Cells Counted 100
--- NOTE | 2021-11-06 09:57 | CT ---
EXAMINATION TYPE: CT angio chest DATE OF EXAM: 11/06/2021 COMPARISON: CTA chest 3 days ago. Chest x-ray earlier today. HISTORY: pulmonary embolism CT DLP: 296.1 mGycm. Automated Exposure Control for Dose Reduction was Utilized. CONTRAST: CTA scan of the thorax is performed with IV Contrast, patient injected with 100 mL of Isovue 370, pul monary embolism protocol. MIP Images are created on CT scanner and reviewed. FINDINGS: LUNGS: Moderate to severe underlying emphysematous change is redemonstrated. Multifocal and confluent Areas of increased groundglass opacity and intralobular septal thickening throughout mid to lower ni ngs are more prominent from prior CT. Small to moderate-sized left pleural effusion is redemonstrated , fairly stable. Associated compressive atelectasis redemonstrated. New posterior right basilar atele ctasis and/or consolidation. No pneumothorax seen bilaterally. MEDIASTINUM: The exam suboptimal inspiration unable to hold breath. There is most dense contrast in t he SVC. There is better visualization of the pulmonary arteries versus prior study without significan t central pulmonary embolism. No definitive smaller segmental and subsegmental pulmonary emboli on th is exam but not entirely excluded. There are persistent prominent and enlarged bilateral hilar and me diastinal lymph nodes. Prominent and enlarged bilateral axillary lymph nodes are redemonstrated. No t horacic aortic aneurysm or dissection. Abnormal internal mammary adenopathy axial image 54 redemonstr ated. OTHER: Significant splenomegaly is partially imaged. Local mass effect is present. Partial visualizat ion of calcifications throughout the pancreas consistent with chronic pancreatitis. Stable 1.4 cm hyp odense lesion right hepatic lobe favored benign. Abnormal abdominal adenopathy surrounding the abdomi nal aorta seen better on prior CT. IMPRESSION: 1. Persistent suboptimal study without central pulmonary embolism. Cannot entirely exclude smaller se gmental and subsegmental pulmonary emboli but they are not distinctly identified. 2. Stable small to moderate size left pleural effusion. Worsening bilateral multifocal and confluent groundglass opacities and interlobular septal thickening suggesting infiltrate and/or edema progressi on on background moderate to advanced chronic emphysematous change. 3. Marked splenomegaly with local mass effect and abnormal adenopathy above and below diaphragm redem onstrated raising concern for lymphoma and/or lymphoproliferative disorders. Correlate clinically.
--- NOTE | 2021-11-06 10:29 | P.PN ---
Subjective Progress Note Date: 11/06/21 Principal diagnosis: Covid pneumonia. History of mantle cell lymphoma Follow-up today patient is on BiPAP, his daughters at the bedside. He is not reporting any acute distress, chest pain, nausea or other pain. Objective - Vital Signs Vital signs: Vital Signs Temp 99.9 F H 11/06/21 07:44 Pulse 123 H 11/06/21 08:20 Resp 34 H 11/06/21 08:20 BP 144/86 11/06/21 07:44 Pulse Ox 93 L 11/06/21 08:20 Intake & Output 11/05/21 11/06/21 11/06/21 18:59 06:59 18:59 Intake Total 240 Output Total 1400 1200 300 Balance -1160 -1200 -300 Intake: Oral 240 Output: Urine 1400 1200 300 Other: Voiding Method Indwelling Catheter - Constitutional General appearance: Present: average body habitus, cooperative, no acute distress - EENT Eyes: Present: anicteric sclerae, EOMI ENT: Present: hearing grossly normal - Psychiatric Psychiatric: Present: A&O x's 3, appropriate affect, intact judgment & insight - Labs CBC & Chem 7: 11/06/21 06:52 11/06/21 06:52 Labs: Abnormal Lab Results - Last 24 Hours (Table) 11/05/21 11/06/21 11/06/21 Range/Units 05:08 06:52 06:52 WBC 76.0 H* (3.8-10.6) k/uL RDW 16.1 H (11.5-15.5) % Plt Count 103 L (150-450) k/uL Lymphocytes # (Manual) 69.92 H (1.0-4.8) k/uL D-Dimer 5.94 H (<0.60) mg/L FEU ABG pH (7.35-7.45) ABG pCO2 (35-45) mmHg ABG pO2 (83-108) mmHg ABG HCO3 (21-25) mmol/L ABG Total CO2 (19-24) mmol/L ABG O2 Saturation (94-97) % Sodium (137-145) mmol/L BUN (9-20) mg/dL Glucose (74-99) mg/dL Calcium (8.4-10.2) mg/dL AST (17-59) U/L Alkaline Phosphatase (38-126) U/L Lactate Dehydrogenase (313-618) U/L Procalcitonin 0.23 H (0.02-0.09) ng/mL 11/06/21 11/06/21 Range/Units 06:52 08:13 WBC (3.8-10.6) k/uL RDW (11.5-15.5) % Plt Count (150-450) k/uL Lymphocytes # (Manual) (1.0-4.8) k/uL D-Dimer (<0.60) mg/L FEU ABG pH 7.61 H* (7.35-7.45) ABG pCO2 26 L (35-45) mmHg ABG pO2 123 H (83-108) mmHg ABG HCO3 26 H (21-25) mmol/L ABG Total CO2 27 H (19-24) mmol/L ABG O2 Saturation 97.2 H (94-97) % Sodium 134 L (137-145) mmol/L BUN 32 H (9-20) mg/dL Glucose 102 H (74-99) mg/dL Calcium 8.2 L (8.4-10.2) mg/dL AST 86 H (17-59) U/L Alkaline Phosphatase 145 H (38-126) U/L Lactate Dehydrogenase 1279 H (313-618) U/L Procalcitonin (0.02-0.09) ng/mL Microbiology - Last 24 Hours (Table) 11/03/21 14:03 Blood Culture - Preliminary Blood No Growth after 48 hours 11/03/21 13:53 Blood Culture - Preliminary Blood No Growth after 48 hours Assessment and Plan (1) Leukocytosis Narrative/Plan: Pt was seen in office 8 days ago for f/u. His lymphocyte percentage was 75% at that time. Contributing factors to patients acute leukocytosis include inflammation, acute covid infection and steroids. Lymphs could also be increased 2/2 progression of disease, but that is felt to be slightly less likely at this time. Unfortunately, if patient does have disease progression, he cannot have treatment at this time with acute, symptomatic covid infection. Elevated WBC/lymphs in this case are more mature cells therefore risk of leukostasis is decreased vs if blasts/immature cells. STAT Ig levels, still pending. Will order IVIG if appropriate. Current Visit: Yes Status: Chronic Priority: Medium Code(s): D72.829 - ELEVATED WHITE BLOOD CELL COUNT, UNSPECIFIED SNOMED Code(s): 440494483 (2) Mantle cell lymphoma Current Visit: Yes Status: Chronic Priority: Medium Code(s): C83.10 - MANTLE CELL LYMPHOMA, UNSPECIFIED SITE SNOMED Code(s): 698121661 Plan: Doctor attests: I performed a history and physical examination of this patient, developed impression and plan of care. Discussed with dictator. I agree with dictators note, documented as a scribe.
--- NOTE | 2021-11-06 12:38 | P.PN ---
Subjective Progress Note Date: 11/06/21 Principal diagnosis: CoVID pneumonia Pulmonary consult dated 11/04/2021. 61-year-old male, seen in consultation. The patient was initially seen in the emergency department, on November 03. He was brought in by EMS for shortness of breath. In addition, he had fever, chills, and dry cough. He's been sick for 3-4 days. Initially, the patient's saturation on room air was only 70%. Currently, the patient is on 10 L high flow O2. The patient's getting saline at 75 mL an hour. He apparently is only been sick for about or days. His primary care physician is Dr. Srivastava. He did receive the Moderna vaccine. The patient has a history of COPD from ongoing tobacco use, and also has a history of lymphoma. His last chemotherapy was apparently last month. He appears to also have hypertension, and hyperlipidemia. White count 46.9, hemoglobin 12.1, hematocrit 37.4, and platelet count 102,000. D-dimer is 7.76. Blood gases show pO2 of 65, pCO2 of 46, and a pH is 7.38. Sodium 132, potassium 4.9, chlorides 100, CO2 26, anion gap 6, BUN 17, creatinine 0.85. LDH is 847. Pro-calcitonin level was 0.21. Chest x-ray shows patchy bilateral infiltrates. The CT angiogr am was negative for pulmonary embolism, but did show diffuse thoracic adenopathy consistent with the patient's known diagnosis of lymphoma. There may also be a component of fluid overload/interstitial edema. Progress note dated 11/05/2021. 61-year-old male, seen again in follow-up. He is in room 351. Currently, the patient is on a nonrebreather mask, and on AIRVO, at 60 L/m with an FiO2 of 93%. His pulse ox saturation is 94%. He is on saline at KVO. Currently, the patient is mildly tachypnea. He looks a bit worse and he did yesterday. I did alert the discharge nurse, that he may end up coming to the intensive care unit, and may end up on BiPAP and/or require intubation/mechanical ventilation. White count 78.8, hemoglobin 12.8, hematocrit 39.6, and platelet count 104,000. D-dimer 6.94. Sodium 133, potassium chloride CO2 anion gap BUN and creatinine are all normal. Initial pro-calcitonin level was 0.23. It was repeated. Blood cultures are currently negative. The patient is seen today 11/06/2021 in follow-up on the selective care unit. His oxygen requirements have worsened. An A team was called on him earlier this morning. Chest x-ray reveals worsening bilateral CoVID pneumonia. CT angiogram was ruled out any central pulmonary embolism. Smaller subsegmental's could not be entirely excluded as it was a suboptimal study. There is [id number] left pleural effusion. Worsening bilateral multifocal groundglass opacities and interlobular septal thickening with background moderate to advanced chronic obstructive pulmonary disease. Marketed splenomegaly with local mass effect and abnormal adenopathy above and below the diaphragm redemonstrating concern for lymphoma. He is now on BiPAP 14/800% FiO2 to maintain O2 saturations in the low 90s. Arterial blood gases revealed a PaO2 of 123, pCO2 26, pH 7.61 on 100% FiO2. He is tachycardic. Tachypneic. White count 76.0. Hemoglobin 14.1. Platelets 103. Lymphocytes 69.92. D-dimer 5.94. Sodium 134. Potassium 5.0. Creatinine 0.78. LDH 1279. Pro-calcitonin 0.23. Family is at the bedside. Objective - Vital Signs Vital signs: Vital Signs Temp 99.9 F H 11/06/21 07:44 Pulse 123 H 11/06/21 08:20 Resp 34 H 11/06/21 08:20 BP 144/86 11/06/21 07:44 Pulse Ox 93 L 11/06/21 08:20 Intake & Output 11/05/21 11/06/21 11/06/21 18:59 06:59 18:59 Intake Total 240 10 Output Total 1400 1200 300 Balance -1160 -1200 -290 Intake: IV 10 Invasive Line 2 10 Oral 240 Output: Urine 1400 1200 300 Other: Voiding Method Indwelling Catheter Indwelling Catheter - Exam GENERAL EXAM: Alert, oriented times one, on BiPAP 14/8 and 100% FiO2 in moderate respiratory distress. HEAD: Normocephalic. EYES: Normal reaction of pupils, equal size. NOSE: Clear with pink turbinates. THROAT: No erythema or exudates. NECK: No masses, no JVD. CHEST: No chest wall deformity. LUNGS: Equal air entry with coarse crackles in bilateral bases, scattered r honchi CVS: S1 and S2 normal with no audible murmur, regular rhythm. ABDOMEN: No hepatosplenomegaly, normal bowel sounds, no guarding or rigidity. SPINE: No scoliosis or deformity SKIN: No rashes CENTRAL NERVOUS SYSTEM: No focal deficits, tone is normal in all 4 extremities. EXTREMITIES: There is no peripheral edema. No clubbing, no cyanosis. Peripheral pulses are intact. - Labs CBC & Chem 7: 11/06/21 06:52 11/06/21 06:52 Labs: Abnormal Lab Results - Last 24 Hours (Table) 11/05/21 11/06/21 11/06/21 Range/Units 05:08 06:52 06:52 WBC 76.0 H* (3.8-10.6) k/uL RDW 16.1 H (11.5-15.5) % Plt Count 103 L (150-450) k/uL Lymphocytes # (Manual) 69.92 H (1.0-4.8) k/uL D-Dimer 5.94 H (<0.60) mg/L FEU ABG pH (7.35-7.45) ABG pCO2 (35-45) mmHg ABG pO2 (83-108) mmHg ABG HCO3 (21-25) mmol/L ABG Total CO2 (19-24) mmol/L ABG O2 Saturation (94-97) % Sodium (137-145) mmol/L BUN (9-20) mg/dL Glucose (74-99) mg/dL Calcium (8.4-10.2) mg/dL AST (17-59) U/L Alkaline Phosphatase (38-126) U/L Lactate Dehydrogenase (313-618) U/L Procalcitonin 0.23 H (0.02-0.09) ng/mL 11/06/21 11/06/21 Range/Units 06:52 08:13 WBC (3.8-10.6) k/uL RDW (11.5-15.5) % Plt Count (150-450) k/uL Lymphocytes # (Manual) (1.0-4.8) k/uL D-Dimer (<0.60) mg/L FEU ABG pH 7.61 H* (7.35-7.45) ABG pCO2 26 L (35-45) mmHg ABG pO2 123 H (83-108) mmHg ABG HCO3 26 H (21-25) mmol/L ABG Total CO2 27 H (19-24) mmol/L ABG O2 Saturation 97.2 H (94-97) % Sodium 134 L (137-145) mmol/L BUN 32 H (9-20) mg/dL Glucose 102 H (74-99) mg/dL Calcium 8.2 L (8.4-10.2) mg/dL AST 86 H (17-59) U/L Alkaline Phosphatase 145 H (38-126) U/L Lactate Dehydrogenase 1279 H (313-618) U/L Procalcitonin (0.02-0.09) ng/mL Microbiology - Last 24 Hours (Table) 11/03/21 14:03 Blood Culture - Preliminary Blood No Growth after 48 hours 11/03/21 13:53 Blood Culture - Preliminary Blood No Growth after 48 hours Assessment and Plan Assessment: Acute hypoxemic respiratory failure, which might be multifactorial, in part related to coronavirus associated pneumonia, fluid overload, and possible COPD exacerbation. In addition, there may be a component of bacterial infection. History of hypertension. History of hyperlipidemia. History of ongoing tobacco use, with suspected COPD. History of lymphoma, probably CLL. Plan: The patient was seen and evaluated by Dr. Viera Family is at the bedside in deciding on intubation versus comfort care In the interim, we'll continue with full BiPAP support Continue bronchodilators, Decadron, Lovenox His prognosis is guarded We will continue to follow make further recommendations based on his clinical status I, the cosigning physician, performed a history & physical examination of the patient. Lungs sounds with crackles in posterior bases, scattered rhonchi. Maintaining O2 saturations in the 90s on BiPAP 14/8 and 100% FiO2. I discussed the assessment and plan of care with my nurse practitioner, Maryann Crow. I attest to the above note as dictated by her.
[2021-11-06 15:03] VITALS: BP 134/82; TEMP 100.4
[2021-11-06] MEDS: MORPHINE SULFATE (100 MG/2 ML) 100 MG in SODIUM CHLORIDE 0.9% 100 ML IV SCH ×2 (15:40→21:54)
[2021-11-06 17:36] LABS: Immunoglobulin M 13.7 mg/dL (40.0-280.0)
[2021-11-07] MEDS: LORazepam 2 MG/ML INJ IV PRN ×3 (02:41→14:54)
[2021-11-07] MEDS: MORPHINE SULFATE (100 MG/2 ML) 100 MG in SODIUM CHLORIDE 0.9% 100 ML IV SCH ×2 (04:41→10:49)
[2021-11-07] MEDS: NICOTINE 14MG/24HR PATCH TRANSDERM SCH (09:18)
--- NOTE | 2021-11-07 10:48 | P.PN ---
Subjective Progress Note Date: 11/07/21 Patient appears to be comfortable Sleepy Psych sleepy Chest accessory respiratory muscle usage Neurological generalized weakness Musculoskeletal generalized weakness OVID-19 pneumonitis Acute hypoxic respiratory failure COPD without acute exacerbation Toxic metabolic encephalopathy -Dexamethasone D#4/ - started on BiPap 11/06 - CTA chest if able, stat d-dimer -Pulmonary recs appreciated d/w pulmonary - zinc, vitamin C, and vitamin D -Follow Covid inflammatory markers, though these will likely be unreliable secondary to his known lymphoma -Pulmonary hygiene -Bronchodilators as needed - on AIRVO 11/05 - Lasix X 1 now again Chronic Back pain -Gabapentin - Ovy transitioned to dilaudid so that BiPap does not need to be removed Lymphoma and thrombocytopenia -Discussed with Dr. Sigala- flow pending as outpatient, no conerns of leukostasis -follow CBC (pending this AM) Hypertension, controlled - metoprolol transitioned to IV -Follow blood pressures Dyslipidemia -Statin Tobacco absue - cessation - nicotine replacement Hyponatremia, improved Family decided to the BiPAP and keep the patient comfortable Objective - Vital Signs Vital signs: Vital Signs Temp 100.4 F H 11/06/21 12:00 Pulse 156 H 11/07/21 08:00 Resp 26 H 11/07/21 08:00 BP 134/82 11/06/21 12:00 Pulse Ox 89 L 11/06/21 12:00 Intake & Output 11/06/21 11/07/21 11/07/21 18:59 06:59 18:59 Intake Total 82.848 153.408 92.208 Output Total 1300 1100 Balance -1217.152 -946.592 92.208 Weight 69.5 kg Intake: IV 60 Invasive Line 2 30 Invasive Line 3 30 Intake, IV Titration 22.848 153.408 92.208 Amount Morphine Sulfate (100 mg/ 22.848 153.408 92.208 2 ml) 100 mg In Sodium Chloride 0.9% 100 ml @ 1 MG/HR 1.02 mls/hr IV . Q24H [facility] Rx#:[id number] Output: Urine 1300 1100 Other: Voiding Method Indwelling Catheter Indwelling Catheter Indwelling Catheter - Labs CBC & Chem 7: 11/06/21 06:52 11/06/21 06:52 Labs: Abnormal Lab Results - Last 24 Hours (Table) 12/15/21 Range/Units 05:08 IgM 13.7 L (40.0-280.0) mg/dL Microbiology - Last 24 Hours (Table) 11/03/21 13:53 Blood Culture - Preliminary Blood No Growth after 72 hours 11/03/21 14:03 Blood Culture - Preliminary Blood No Growth after 72 hours
[2021-11-07 13:59] VITALS: PULSE 117; RESP 22
--- NOTE | 2021-11-07 15:54 | P.DS ---
Providers Date of admission: 11/03/21 16:59 Expected date of discharge: 11/07/21 Attending physician: Delmy Alarcon DO Primary care physician: Odin Srivastava MD Hospital Course: Patient is a 61-year-old male for history of lymphoma with last chemo last month, COPD, and tobacco abuse who presented to the ER with complaints of shortness of breath. He had been to urgent care earlier and was found to have COVID-19. Laboratory analysis in the ER was remarkable for white blood cell count of 44 with smudge cells present, sodium 133, LDH 841, CRP 13. Chest x-ray was consistent with CHF versus COVID-19 pneumonia. Patient underwent chest CTA which demonstrated no evidence of central or lobar pulmonary embolism, diffuse thoracic and upper abdominal lymphadenopathy and severe splenomegaly as well as COPD and a moderate left-sided pleural effusion. CT head showed no acute intracranial abnormality. His fundi be febrile on admission with a temperature of 101.9 he was tachycardic with a pulse of 114 and he was satting 86% on 6 L nasal cannula. ABG demonstrated a preserved pH with a CO2 of 46. In the ER he was given a dose of Tylenol and started on IV fluids. He was admitted for further monitoring. Patient did have acute respiratory failure due to occult pneumonia continued to be on BiPAP patient continued to be in distress hypoxic rapid response has been called and the patient continued to be on BiPAP and the condition of the patient did not improve the wanted the patient to be comfortable patient has been started on morphine and then the family decided to stop and DC the BiPAP and they wanted the patient to be on the comfortable so patient condition continued continued to be unresponsive and patient went into cardiopulmonary arrest and was pronounced Initial diagnosis Acute hypoxic respiratory failure due to COVID-19 pneumonia Respiratory distress Lymphoma Poor prognosis comfort measures Patient Condition at Discharge: Undetermined Plan - Discharge Summary Discharge Rx Participant: No New Discharge Prescriptions: No Action oxyCODONE HCL [oxyCODONE HCL (IR)] 30 mg PO Q6H Metoprolol Succinate (ER) [Toprol Xl] 50 mg PO DAILY Ferrous Sulfate [Feosol] 325 mg PO DAILY Albuterol Inhaler [Ventolin Hfa Inhaler] 2 puff INHALATION RT-Q6H PRN PRN Reason: Shortness Of Breath Tamsulosin HCl [Flomax] 0.4 mg PO DAILY Pravastatin Sodium [Pravachol] 40 mg PO HS Gabapentin 800 mg PO QID Discharge Medication List Albuterol Inhaler [Ventolin Hfa Inhaler] 2 puff INHALATION RT-Q6H PRN 11/03/21 [History] Ferrous Sulfate [Feosol] 325 mg PO DAILY 11/03/21 [History] Gabapentin 800 mg PO QID 11/03/21 [History] Metoprolol Succinate (ER) [Toprol Xl] 50 mg PO DAILY 11/03/21 [History] Pravastatin Sodium [Pravachol] 40 mg PO HS 11/03/21 [History] Tamsulosin HCl [Flomax] 0.4 mg PO DAILY 11/03/21 [History] oxyCODONE HCL [oxyCODONE HCL (IR)] 30 mg PO Q6H 11/03/21 [History] Follow up Appointment(s)/Referral(s): Parish Sigala MD [STAFF PHYSICIAN] - 12/03/21 4:00 pm Odin Srivastava MD [Primary Care Provider] - 1-2 days
== END 2021-11-07 18:23 | disposition expired | DRG 177 ==
LOC: EC 13:15 → 3SCARD 16:59
PROVIDERS: ADMIT Internal Medicine; ATTEND Internal Medicine
PROC: 5A0945A Assistance with Respiratory Ventilation, 24-96 Consecutive Hours, High Flow/Velocity Cannula (ICD-10-PCS; principal; 2021-11-03)
PROC: 5A09457 Assistance with Respiratory Ventilation, 24-96 Consecutive Hours, Continuous Positive Airway Pressure (ICD-10-PCS; 2021-11-03)
DX: U07.1 COVID-19 (principal); G92.8 Other toxic encephalopathy; J12.82 Pneumonia due to coronavirus disease 2019; J96.01 Acute respiratory failure with hypoxia; E87.1 Hypo-osmolality and hyponatremia; J44.0 Chronic obstructive pulmonary disease with (acute) lower respiratory infection; C83.10 Mantle cell lymphoma, unspecified site; J81.1 Chronic pulmonary edema; Z66 Do not resuscitate; Z51.5 Encounter for palliative care; D69.6 Thrombocytopenia, unspecified; R59.0 Localized enlarged lymph nodes; Z71.6 Tobacco abuse counseling; G89.29 Other chronic pain; I10 Essential (primary) hypertension; E87.70 Fluid overload, unspecified; R16.1 Splenomegaly, not elsewhere classified; N40.0 Benign prostatic hyperplasia without lower urinary tract symptoms; D72.820 Lymphocytosis (symptomatic); E78.5 Hyperlipidemia, unspecified; M54.9 Dorsalgia, unspecified; E86.0 Dehydration; F17.210 Nicotine dependence, cigarettes, uncomplicated; Z78.1 Physical restraint status; Z79.899 Other long term (current) drug therapy; Z90.5 Acquired absence of kidney; Z88.8 Allergy status to other drugs, medicaments and biological substances; Z80.1 Family history of malignant neoplasm of trachea, bronchus and lung; Z92.21 Personal history of antineoplastic chemotherapy; Z88.1 Allergy status to other antibiotic agents; Z81.8 Family history of other mental and behavioral disorders
CPT/HCPCS: 36415; 36600; 70450; 71045; 71046; 71275; 80053; 81001; 82728; 82784; 82805; 83605; 83615; 83735; 83880; 84100; 84145; 84484; 85025; 85027; 85379; 85610; 85730; 86140; 87040; 87636; 93005; 94640; 94660; 94760; 96360; 96361; 99291